=== PATIENT | female | born 1970 | race Caucasian/White ===

== ENCOUNTER 2021-04-06 21:48 | Inpatient (IN) | payer OTHER, SELFPAY ==
[2021-04-06] MEDS ORDERED: Morphine 4 MG/ML VIAL ONE (22:40)
[2021-04-06] MEDS ORDERED: Ondansetron PF 4 MG/2 ML Vial ONE (22:40)
[2021-04-06 22:47] LABS: Bilirubin Neg (Negative); Blood, Urine Negative (Negative); Clarity Clear (Clear); Glucose, Urine (Dipstick) >=1000 mg/dL (Negative); Ketone, Urine Negative (Negative); Leukocyte 25 (Negative); Nitrite Negative (Negative); Protein, Urine (Dipstick) Negative (Neg-Trace); Specific Gravity, Urine 1.015 (1.002-1.036); Urobilinogen Normal mg/dL (Less than 2)
[2021-04-06 22:56] LABS: Bacteria/HPF 1+ HPF (None Seen); RBC/HPF None Seen HPF (0-3); Squamous Epithelial 0-3 HPF (0-3)
[2021-04-06 23:23] LABS: #Eosinphils 0.1 10x3/uL (0.0-0.5); #Monocytes 0.3 10x3/uL (0.0-1.1); %Basophils 0.7 % (0.0-2.0); %Monocytes 7.6 % (0.0-10.0); Hemoglobin 12.1 g/dL (12.0-15.5); Mean Corpuscular HGB CONC 35.2 g/dL (32.0-36.0); Mean Corpuscular Hemoglobin 32.5 pg (27.0-33.0); Mean Corpuscular Volume 92.5 fl (81.6-98.3); Mean Platelet Volume 10.5 fl (7.4-10.4); Platelet Count 171 10x3/uL (150-450); RBC Distribution Width 11.9 % (11.5-14.5); Red Blood Cell (RBC) Count 3.72 10x6/uL (3.90-5.03); White Blood Cell (WBC) Count 4.1 10x3/uL (3.5-10.5)
[2021-04-06 23:24] LABS: #Neutrophils 2.4 10x3/uL (1.5-8.4); %Neutrophils 59.7 % (40.0-75.0)
[2021-04-06 23:37] LABS: ALT (SGPT) 18 U/L (8-55); AST (SGOT) 12 U/L (5-34); Albumin 3.5 g/dL (3.5-5.0); Alkaline Phosphatase 82 U/L (40-110); Anion Gap 15 mmol/L (10-20); BUN (Urea Nitrogen) 13 mg/dL (9.8-20.1); Bilirubin, Total 0.5 mg/dL (0.2-1.2); Calc. Creatinine Clearance 0 mL/min (70-130); Calcium 8.8 mg/dL (7.8-10.44); Carbon Dioxide 26 mmol/L (22-29); Chloride 101 mmol/L (98-107); Globulin 2.6 g/dL (2.4-3.5); Glucose 541 mg/dL (70-105); Lipase 30 U/L (8-78); Potassium 3.9 mmol/L (3.5-5.1); Protein, Total 6.1 g/dL (6.0-8.3); Sodium 138 mmol/L (136-145)
[2021-04-07 00:20] LABS: Actual Bicarbonate (HCO3v) 26 mEq/L (22-28); Calcium, Ionized (venous) 1.15 mmol/L (1.16-1.32); Chloride (VBG) 101 mmol/L (98-106); Hemoglobin (Hb) 13.5 g/dL (11.7-16.0); Potassium (VBG) 3.75 mmol/L (3.70-5.30); Puncture Site Other Site; RapidComm Collect By LAB; Sodium 137.1 mmol/L (133-146); pH (venous) 7.36 (7.32-7.43)
[2021-04-07] MEDS ORDERED: HYDROmorphone 0.5 MG/0.5 ML SYRINGE ONE (00:58)
[2021-04-07] MEDS ORDERED: metroNIDAZOLE 500 MG/100 ML BAG ONE (02:45)
[2021-04-07] MEDS ORDERED: Dextrose 5% in Water 1,000 ML IV PRN (04:52)
[2021-04-07] MEDS ORDERED: Dextrose 50% Abboject 50 ML SYRINGE SLOW IVP PRN (04:52)
[2021-04-07] MEDS ORDERED: Morphine 2 MG/ML VIAL SLOW IVP PRN (05:04)
[2021-04-07 05:37] LABS: #Eosinphils 0.1 10x3/uL (0.0-0.5); #Monocytes 0.3 10x3/uL (0.0-1.1); #Neutrophils 2.6 10x3/uL (1.5-8.4); %Basophils 0.7 % (0.0-2.0); %Eosinophils 1.5 % (0.0-6.0); %Lymphocytes 26.5 % (18.0-47.0); %Monocytes 6.9 % (0.0-10.0); %Neutrophils 64.2 % (40.0-75.0); Hemoglobin 12.7 g/dL (12.0-15.5); Mean Corpuscular HGB CONC 34.5 g/dL (32.0-36.0); Mean Corpuscular Hemoglobin 32.4 pg (27.0-33.0); Mean Corpuscular Volume 93.9 fl (81.6-98.3); Mean Platelet Volume 10.5 fl (7.4-10.4); Platelet Count 153 10x3/uL (150-450); RBC Distribution Width 12.1 % (11.5-14.5); Red Blood Cell (RBC) Count 3.92 10x6/uL (3.90-5.03)
[2021-04-07 05:48] LABS: Anion Gap 16 mmol/L (10-20); BUN (Urea Nitrogen) 10 mg/dL (9.8-20.1); Calc. Creatinine Clearance 0 mL/min (70-130); Calcium 8.5 mg/dL (7.8-10.44); Carbon Dioxide 21 mmol/L (22-29); Chloride 101 mmol/L (98-107); Glucose 460 mg/dL (70-105); Potassium 3.9 mmol/L (3.5-5.1); Sodium 134 mmol/L (136-145)
[2021-04-07] MEDS: HumaLOG 300 UNITS/3 ML VIAL SC PRN (07:06)
[2021-04-07] MEDS ORDERED: Magnesium 2 GM/50 ML 2 GM in Premix Bag 1 BAG IVPB SCH (07:45)
[2021-04-07] MEDS ORDERED: HYDROmorphone 0.5 MG/0.5 ML SYRINGE SLOW IVP SCH ×3 (09:00→21:00)
[2021-04-07 09:02] VITALS: BMI 20.1
[2021-04-07] MEDS: Lantus 1000 UNITS/10 ML VIAL SC SCH (09:19)
[2021-04-07] MEDS: Enoxaparin Sodium 40 MG/0.4 ML SYRINGE SC SCH (09:20)
[2021-04-07] MEDS ORDERED: metroNIDAZOLE 500 MG in Premix Bag 1 BAG IVPB SCH (11:00)
[2021-04-07 11:32] LABS: SARS-CoV-2 NAA Rapid Test Not Detected (NotDetected)
[2021-04-07] MEDS: Potassium Chloride 20 MEQ in Lactated Ringer's 1,000 ML IV SCH ×2 (13:47)
[2021-04-07] MEDS: metroNIDAZOLE 500 MG in Premix Bag 1 BAG IVPB SCH ×2 (13:48→21:37)
[2021-04-07] MEDS: Morphine 4 MG/ML VIAL SLOW IVP PRN (13:48)
[2021-04-07] MEDS ORDERED: Ketorolac Tromethamine 30 MG/ML VIAL IVP PRN (15:30)
[2021-04-07 16:46] LABS: Amphetamine Not Detected (NotDetected); Barbiturates Screen Not Detected (NotDetected); Benzodiazepine Screen Not Detected (NotDetected); Cocaine Metabolite Screen Not Detected (NotDetected); Methadone Not Detected (NotDetected); Methamphetamine Not Detected (NotDetected); Opiate Screen Detected (NotDetected); Oxycodone Screen Not Detected (NotDetected); Phencyclidine (PCP) Not Detected (NotDetected); THC/Cannabinoid Screen Detected (NotDetected); Tricyclic Screen Not Detected (NotDetected)
[2021-04-08] MEDS: Promethazine HCl 12.5 MG in Sodium Chloride 0.9% 50 ML IVPB PRN (01:44)
[2021-04-08] MEDS: Morphine 4 MG/ML VIAL SLOW IVP PRN ×5 (01:44→21:22)
[2021-04-08] MEDS ORDERED: Lactated Ringer's 1,000 ML ONE (01:52)
[2021-04-08] MEDS: Potassium Chloride 20 MEQ in Lactated Ringer's 1,000 ML IV SCH ×3 (02:00→16:58)
[2021-04-08] MEDS ORDERED: HYDROmorphone 0.5 MG/0.5 ML SYRINGE SLOW IVP SCH (04:15)
[2021-04-08] MEDS: Ondansetron PF 4 MG/2 ML Vial IVP PRN ×3 (04:41→21:22)
[2021-04-08] MEDS: metroNIDAZOLE 500 MG in Premix Bag 1 BAG IVPB SCH ×3 (07:42→21:21)
[2021-04-08] MEDS: Enoxaparin Sodium 40 MG/0.4 ML SYRINGE SC SCH (09:10)
[2021-04-08] MEDS: Lantus 1000 UNITS/10 ML VIAL SC SCH (09:11)
[2021-04-08] MEDS: Vancomycin HCl 25 MG/ML Oral PO SCH ×2 (16:58→21:37)
[2021-04-08] MEDS: HumaLOG 300 UNITS/3 ML VIAL SC PRN (21:49)
[2021-04-09] MEDS: Potassium Chloride 20 MEQ in Lactated Ringer's 1,000 ML IV SCH ×3 (00:03→21:02)
[2021-04-09] MEDS: Morphine 4 MG/ML VIAL SLOW IVP PRN ×3 (01:46→10:07)
[2021-04-09] MEDS: Vancomycin HCl 25 MG/ML Oral PO SCH ×4 (03:19→20:46)
[2021-04-09 04:57] LABS: #Eosinphils 0.1 10x3/uL (0.0-0.5); #Monocytes 0.3 10x3/uL (0.0-1.1); #Neutrophils 1.8 10x3/uL (1.5-8.4); %Basophils 1.2 % (0.0-2.0); %Lymphocytes 34.1 % (18.0-47.0); %Monocytes 8.5 % (0.0-10.0); %Neutrophils 52.9 % (40.0-75.0); Hemoglobin 13.1 g/dL (12.0-15.5); Mean Corpuscular Hemoglobin 32.3 pg (27.0-33.0); Mean Corpuscular Volume 92.1 fl (81.6-98.3); Mean Platelet Volume 10.4 fl (7.4-10.4); Platelet Count 173 10x3/uL (150-450); RBC Distribution Width 11.8 % (11.5-14.5); Red Blood Cell (RBC) Count 4.06 10x6/uL (3.90-5.03); White Blood Cell (WBC) Count 3.3 10x3/uL (3.5-10.5)
[2021-04-09 05:04] LABS: Anion Gap 11 mmol/L (10-20); BUN (Urea Nitrogen) 4 mg/dL (9.8-20.1); Calc. Creatinine Clearance 95 mL/min (70-130); Calcium 8.7 mg/dL (7.8-10.44); Carbon Dioxide 28 mmol/L (22-29); Chloride 102 mmol/L (98-107); Glucose 168 mg/dL (70-105); Potassium 3.9 mmol/L (3.5-5.1); Sodium 137 mmol/L (136-145)
[2021-04-09] MEDS: HumaLOG 300 UNITS/3 ML VIAL SC PRN ×2 (06:03→20:48)
[2021-04-09] MEDS: metroNIDAZOLE 500 MG in Premix Bag 1 BAG IVPB SCH ×3 (06:04→22:55)
[2021-04-09] MEDS: Enoxaparin Sodium 40 MG/0.4 ML SYRINGE SC SCH (10:06)
[2021-04-09] MEDS: Lantus 1000 UNITS/10 ML VIAL SC SCH (10:07)
[2021-04-09] MEDS: HYDROcodone/Acetaminophen 5/325 mg Tablet PO PRN ×2 (12:24→20:44)
[2021-04-09] MEDS: Ondansetron PF 4 MG/2 ML Vial IVP PRN (12:24)
[2021-04-09] MEDS: Morphine 4 MG/ML VIAL SLOW IVP SCH ×2 (15:45→23:21)
[2021-04-10] MEDS: HYDROcodone/Acetaminophen 5/325 mg Tablet PO PRN ×4 (03:18→20:27)
[2021-04-10] MEDS: Vancomycin HCl 25 MG/ML Oral PO SCH ×4 (03:19→20:27)
[2021-04-10] MEDS: metroNIDAZOLE 500 MG in Premix Bag 1 BAG IVPB SCH ×3 (05:01→20:40)
[2021-04-10] MEDS: Potassium Chloride 20 MEQ in Lactated Ringer's 1,000 ML IV SCH ×3 (05:01→16:20)
[2021-04-10 05:35] LABS: Hemoglobin 13.3 g/dL (12.0-15.5); Mean Corpuscular HGB CONC 35.7 g/dL (32.0-36.0); Mean Corpuscular Hemoglobin 32.3 pg (27.0-33.0); Mean Corpuscular Volume 90.5 fl (81.6-98.3); Red Blood Cell (RBC) Count 4.12 10x6/uL (3.90-5.03); White Blood Cell (WBC) Count 3.3 10x3/uL (3.5-10.5)
[2021-04-10 05:41] LABS: MDiff Complete? YES
[2021-04-10 05:52] LABS: Anion Gap 12 mmol/L (10-20); BUN (Urea Nitrogen) 8 mg/dL (9.8-20.1); Calc. Creatinine Clearance 82 mL/min (70-130); Calcium 9.1 mg/dL (7.8-10.44); Carbon Dioxide 25 mmol/L (22-29); Chloride 101 mmol/L (98-107); Glucose 338 mg/dL (70-105); Potassium 4.8 mmol/L (3.5-5.1); Sodium 133 mmol/L (136-145)
[2021-04-10 05:56] LABS: Eosinophils 3 % (0-10); Lymphocytes 34 % (21-51); Monocytes 9 % (0-10); Neutrophil 46 % (42-75); Reactive Lymphocytes 7 % (0-10)
[2021-04-10 05:57] LABS: Platelet Clumps SLIGHT; Platelet Morphology Comment Appears Adequate
[2021-04-10 06:29] LABS: Large Platelets SLIGHT; Mean Platelet Volume 10.4 fl (7.4-10.4); Platelet Count 168 10x3/uL (150-450)
[2021-04-10] MEDS: Morphine 4 MG/ML VIAL SLOW IVP SCH ×3 (07:39→22:38)
[2021-04-10] MEDS ORDERED: Gabapentin 300 MG CAP PO SCH (10:45)
[2021-04-10] MEDS: Enoxaparin Sodium 40 MG/0.4 ML SYRINGE SC SCH (10:51)
[2021-04-10] MEDS: Ondansetron PF 4 MG/2 ML Vial IVP PRN (10:52)
[2021-04-10] MEDS ORDERED: Lidocaine 5% Patch TD SCH (11:45)
[2021-04-10] MEDS: HumaLOG 300 UNITS/3 ML VIAL SC PRN (11:59)
[2021-04-10] MEDS: Lantus 1000 UNITS/10 ML VIAL SC SCH (12:00)
[2021-04-10] MEDS: Gabapentin 300 MG CAP PO SCH ×2 (14:26→20:51)
[2021-04-10] MEDS: Promethazine HCl 12.5 MG in Sodium Chloride 0.9% 50 ML IVPB PRN (20:27)
[2021-04-10] MEDS ORDERED: Transdermal Patch Removal TOP SCH (21:00)
[2021-04-10] MEDS: Transdermal Patch Removal TOP SCH (22:43)
[2021-04-11] MEDS: Potassium Chloride 20 MEQ in Lactated Ringer's 1,000 ML IV SCH ×3 (00:50→17:48)
[2021-04-11] MEDS ORDERED: Promethazine HCl 25 MG/ML VIAL ONE (03:16)
[2021-04-11] MEDS: Vancomycin HCl 25 MG/ML Oral PO SCH ×4 (03:35→21:02)
[2021-04-11] MEDS: HYDROcodone/Acetaminophen 5/325 mg Tablet PO PRN ×2 (03:35→09:30)
[2021-04-11] MEDS: Promethazine HCl 12.5 MG in Sodium Chloride 0.9% 50 ML IVPB PRN (03:38)
[2021-04-11 04:59] LABS: #Eosinphils 0.2 10x3/uL (0.0-0.5); #Monocytes 0.3 10x3/uL (0.0-1.1); #Neutrophils 1.5 10x3/uL (1.5-8.4); %Basophils 1.1 % (0.0-2.0); %Eosinophils 4.2 % (0.0-6.0); %Lymphocytes 43.1 % (18.0-47.0); %Monocytes 8.4 % (0.0-10.0); %Neutrophils 42.9 % (40.0-75.0); Hemoglobin 13.4 g/dL (12.0-15.5); Mean Corpuscular HGB CONC 35.2 g/dL (32.0-36.0); Mean Corpuscular Hemoglobin 32.1 pg (27.0-33.0); Mean Corpuscular Volume 91.4 fl (81.6-98.3); Mean Platelet Volume 10.6 fl (7.4-10.4); Platelet Count 178 10x3/uL (150-450); Red Blood Cell (RBC) Count 4.17 10x6/uL (3.90-5.03); White Blood Cell (WBC) Count 3.6 10x3/uL (3.5-10.5)
[2021-04-11 05:17] LABS: Anion Gap 11 mmol/L (10-20); BUN (Urea Nitrogen) 11 mg/dL (9.8-20.1); Calc. Creatinine Clearance 79 mL/min (70-130); Calcium 9.2 mg/dL (7.8-10.44); Carbon Dioxide 29 mmol/L (22-29); Chloride 101 mmol/L (98-107); Glucose 256 mg/dL (70-105); Potassium 4.1 mmol/L (3.5-5.1); Sodium 137 mmol/L (136-145)
[2021-04-11] MEDS: metroNIDAZOLE 500 MG in Premix Bag 1 BAG IVPB SCH ×3 (06:34→22:05)
[2021-04-11] MEDS: Morphine 4 MG/ML VIAL SLOW IVP SCH ×3 (06:37→22:06)
[2021-04-11] MEDS: Gabapentin 300 MG CAP PO SCH ×3 (08:19→21:03)
[2021-04-11] MEDS: Lantus 1000 UNITS/10 ML VIAL SC SCH (08:20)
[2021-04-11] MEDS: Lidocaine 5% Patch TD SCH (08:21)
[2021-04-11] MEDS: Enoxaparin Sodium 40 MG/0.4 ML SYRINGE SC SCH (10:12)
[2021-04-11] MEDS ORDERED: oxyCODONE/Acetaminophen 5 mg/325 mg Tablet PO PRN ×2 (12:18→12:19)
[2021-04-11] MEDS ORDERED: Methocarbamol 500 MG TAB PO PRN (12:20)
[2021-04-11] MEDS: HumaLOG 300 UNITS/3 ML VIAL SC PRN ×3 (12:21→22:06)
[2021-04-11] MEDS ORDERED: oxyCODONE 5 MG TAB PO PRN (15:44)
[2021-04-11] MEDS ORDERED: Acetaminophen 325 MG TAB PO PRN ×2 (15:45→15:46)
[2021-04-11] MEDS: Lactinex Tablet PO SCH ×2 (15:50→21:02)
[2021-04-11] MEDS: oxyCODONE 5 MG TAB PO PRN (17:47)
[2021-04-11] MEDS: Ondansetron PF 4 MG/2 ML Vial IVP PRN (17:49)
[2021-04-12] MEDS: Ondansetron PF 4 MG/2 ML Vial IVP PRN ×3 (01:03→21:14)
[2021-04-12] MEDS: oxyCODONE 5 MG TAB PO PRN ×3 (01:03→21:16)
[2021-04-12] MEDS: Potassium Chloride 20 MEQ in Lactated Ringer's 1,000 ML IV SCH ×2 (01:40→08:58)
[2021-04-12] MEDS: metroNIDAZOLE 500 MG in Premix Bag 1 BAG IVPB SCH ×3 (05:37→22:57)
[2021-04-12] MEDS: Vancomycin HCl 25 MG/ML Oral PO SCH ×4 (05:38→21:15)
[2021-04-12] MEDS: Morphine 4 MG/ML VIAL SLOW IVP SCH ×3 (05:38→22:57)
[2021-04-12] MEDS: Transdermal Patch Removal TOP SCH (06:14)
[2021-04-12] MEDS: Lantus 1000 UNITS/10 ML VIAL SC SCH (08:57)
[2021-04-12] MEDS: Gabapentin 300 MG CAP PO SCH ×3 (08:59→21:15)
[2021-04-12] MEDS: Enoxaparin Sodium 40 MG/0.4 ML SYRINGE SC SCH (08:59)
[2021-04-12] MEDS: Lactinex Tablet PO SCH ×3 (08:59→21:14)
[2021-04-12] MEDS: Lidocaine 5% Patch TD SCH (08:59)
[2021-04-12] MEDS: HumaLOG 300 UNITS/3 ML VIAL SC PRN (18:44)
[2021-04-13] MEDS: Potassium Chloride 20 MEQ in Lactated Ringer's 1,000 ML IV SCH ×3 (01:00→11:11)
[2021-04-13] MEDS: Transdermal Patch Removal TOP SCH (03:17)
[2021-04-13] MEDS: Ondansetron PF 4 MG/2 ML Vial IVP PRN ×2 (03:53→16:41)
[2021-04-13] MEDS: oxyCODONE 5 MG TAB PO PRN ×3 (03:53→16:41)
[2021-04-13] MEDS: Vancomycin HCl 25 MG/ML Oral PO SCH ×3 (03:53→16:41)
[2021-04-13] MEDS: metroNIDAZOLE 500 MG in Premix Bag 1 BAG IVPB SCH ×2 (06:29→15:13)
[2021-04-13] MEDS: Morphine 4 MG/ML VIAL SLOW IVP SCH ×2 (06:29→15:48)
[2021-04-13] MEDS: HumaLOG 300 UNITS/3 ML VIAL SC PRN ×2 (06:53→13:00)
[2021-04-13] MEDS: Lantus 1000 UNITS/10 ML VIAL SC SCH (10:07)
[2021-04-13] MEDS: Gabapentin 300 MG CAP PO SCH ×2 (10:07→15:13)
[2021-04-13] MEDS: Enoxaparin Sodium 40 MG/0.4 ML SYRINGE SC SCH (10:07)
[2021-04-13] MEDS: Lactinex Tablet PO SCH ×2 (10:07→15:13)
[2021-04-13] MEDS: Lidocaine 5% Patch TD SCH (10:08)
[2021-04-13 12:57] VITALS: BP 131/90; TEMP 98.2
== END 2021-04-13 18:04 | disposition home or self-care (01) | DRG 372 ==
LOC: CSHERS 21:48 → CSHTELE 04-07 04:37 → UNDOADMOB 04-07 04:58 → OBSVTOIN 04-07 04:59 → INTOOBSV 04-07 04:59
PROVIDERS: ADMIT Family Medicine; ATTEND Hospitalist
DX: A04.72 Enterocolitis due to Clostridium difficile, not specified as recurrent (principal); F11.20 Opioid dependence, uncomplicated; Z20.822 Contact with and (suspected) exposure to COVID-19; Z88.1 Allergy status to other antibiotic agents; Z88.5 Allergy status to narcotic agent; Z79.4 Long term (current) use of insulin; Z79.899 Other long term (current) drug therapy; Z90.49 Acquired absence of other specified parts of digestive tract; Z98.51 Tubal ligation status; F17.210 Nicotine dependence, cigarettes, uncomplicated; Z86.018 Personal history of other benign neoplasm; E11.65 Type 2 diabetes mellitus with hyperglycemia; E86.0 Dehydration; M54.9 Dorsalgia, unspecified; F12.20 Cannabis dependence, uncomplicated
CPT/HCPCS: 36415; 36416; 74177; 80048; 80053; 80306; 81003; 81015; 82010; 82274; 82805; 83630; 83690; 83735; 84484; 85025; 86403; 87045; 87046; 87081; 87086; 87177; 87324; 87427; 87449; 87493; 93005; 96365; 96375; G0378; J1170; J1650; J1815; J1956; J2270; J2405; J2550; J3475; J3480; J7120; U0002

== ENCOUNTER 2021-10-15 18:53 | Inpatient (IN) | payer OTHER, SELFPAY ==
[2021-10-15 19:42] LABS: Anion Gap 16 mmol/L (10-20); BUN (Urea Nitrogen) 7 mg/dL (9.8-20.1); Calc. Creatinine Clearance 0 mL/min (70-130); Calcium 8.6 mg/dL (7.8-10.44); Carbon Dioxide 24 mmol/L (22-29); Chloride 102 mmol/L (98-107); Glucose 188 mg/dL (70-105); Potassium 3.2 mmol/L (3.5-5.1); Sodium 139 mmol/L (136-145)
[2021-10-15] MEDS ORDERED: Haloperidol Lactate 5 MG/ML VIAL ONE (20:25)
[2021-10-15] MEDS ORDERED: Dextrose 5% in Water 1,000 ML IV PRN (22:28)
[2021-10-15] MEDS ORDERED: Dextrose 50% Abboject 50 ML SYRINGE SLOW IVP PRN (22:28)
[2021-10-15] MEDS ORDERED: Acetaminophen 325 MG TAB PO PRN (22:28)
[2021-10-15 22:31] VITALS: BMI 21.7
[2021-10-15] MEDS ORDERED: Lorazepam 2 MG/ML VIAL SLOW IVP SCH (22:45)
[2021-10-15] MEDS ORDERED: Metoclopramide HCl 10 MG/2 ML VIAL IVP SCH (22:45)
[2021-10-15] MEDS ORDERED: diphenhydrAMINE 50 MG/ML VIAL IVP SCH (22:45)
[2021-10-15] MEDS ORDERED: Morphine 4 MG/ML VIAL SLOW IVP SCH (22:45)
[2021-10-15] MEDS ORDERED: Potassium Chloride 20 MEQ/100 ML PREMIX BAG ONE (22:50)
[2021-10-15] MEDS ORDERED: Prochlorperazine Edisylate 5 MG, Admixture Fee 1 EACH in Sodium Chloride 0.9% 50 ML IVPB SCH (23:00)
[2021-10-15] MEDS ORDERED: Magnesium 2 GM/50 ML 2 GM in Premix Bag 1 BAG IVPB SCH (23:00)
[2021-10-15] MEDS ORDERED: Potassium Chloride 20 MEQ in Premix Bag 1 BAG IVPB SCH (23:00)
[2021-10-15] MEDS: Famotidine/PF 20 mg/2ml Vial SLOW IVP SCH (23:04)
[2021-10-15] MEDS: Lactated Ringer's 1,000 ML IV SCH (23:14)
[2021-10-15] MEDS ORDERED: FLU VACC QS2021-22(6MOS UP)/PF 60 MCG/0.5 ML SYRINGE IM ONE (23:45)
[2021-10-16] MEDS: Ondansetron PF 4 MG/2 ML Vial IVP PRN ×2 (00:58→09:51)
[2021-10-16] MEDS ORDERED: Morphine 4 MG/ML VIAL SLOW IVP SCH (01:45)
[2021-10-16] MEDS: Metoclopramide HCl 10 MG/2 ML VIAL IVP SCH ×3 (05:21→21:56)
[2021-10-16] MEDS: HumaLOG 300 UNITS/3 ML VIAL SC PRN ×2 (05:30→22:01)
[2021-10-16] MEDS ORDERED: Labetalol HCl 100 MG/20 ML VIAL SLOW IVP PRN (05:52)
[2021-10-16] MEDS ORDERED: Lorazepam 2 MG/ML VIAL SLOW IVP SCH (06:00)
[2021-10-16 06:02] LABS: Amphetamine Not Detected (NotDetected); Barbiturates Screen Not Detected (NotDetected); Benzodiazepine Screen Not Detected (NotDetected); Cocaine Metabolite Screen Not Detected (NotDetected); Methadone Not Detected (NotDetected); Methamphetamine Not Detected (NotDetected); Opiate Screen Detected (NotDetected); Oxycodone Screen Not Detected (NotDetected); Phencyclidine (PCP) Not Detected (NotDetected); THC/Cannabinoid Screen Detected (NotDetected); Tricyclic Screen Not Detected (NotDetected)
[2021-10-16 07:21] LABS: ALT (SGPT) 13 U/L (8-55); AST (SGOT) 14 U/L (5-34); Albumin 4.1 g/dL (3.5-5.0); Alkaline Phosphatase 86 U/L (40-110); Anion Gap 23 mmol/L (10-20); BUN (Urea Nitrogen) 7 mg/dL (9.8-20.1); Bilirubin, Total 1.1 mg/dL (0.2-1.2); Calc. Creatinine Clearance 86 mL/min (70-130); Calcium 8.6 mg/dL (7.8-10.44); Carbon Dioxide 16 mmol/L (22-29); Chloride 101 mmol/L (98-107); Globulin 2.9 g/dL (2.4-3.5); Glucose 362 mg/dL (70-105); Potassium 3.7 mmol/L (3.5-5.1); Sodium 136 mmol/L (136-145)
[2021-10-16 07:53] LABS: #Monocytes 0.3 10x3/uL (0.0-1.1); #Neutrophils 4.2 10x3/uL (1.5-8.4); %Basophils 0.8 % (0.0-2.0); %Lymphocytes 14.5 % (18.0-47.0); %Monocytes 5.1 % (0.0-10.0); %Neutrophils 79.2 % (40.0-75.0); Mean Corpuscular Hemoglobin 30.6 pg (27.0-33.0); Mean Platelet Volume 10.6 fl (7.4-10.4); Platelet Count 222 10x3/uL (150-450); RBC Distribution Width 12.7 % (11.5-14.5); White Blood Cell (WBC) Count 5.3 10x3/uL (3.5-10.5)
[2021-10-16] MEDS ORDERED: Lantus 1000 UNITS/10 ML VIAL SC SCH ×4 (09:00→21:00)
[2021-10-16] MEDS: Enoxaparin Sodium 40 MG/0.4 ML SYRINGE SC SCH (09:50)
[2021-10-16] MEDS: Lactated Ringer's 1,000 ML IV SCH (09:50)
[2021-10-16] MEDS: Famotidine/PF 20 mg/2ml Vial SLOW IVP SCH ×2 (09:51→21:56)
[2021-10-16 10:40] LABS: Anion Gap 15 mmol/L (10-20); BUN (Urea Nitrogen) 7 mg/dL (9.8-20.1); Calc. Creatinine Clearance 96 mL/min (70-130); Calcium 8.6 mg/dL (7.8-10.44); Carbon Dioxide 22 mmol/L (22-29); Chloride 103 mmol/L (98-107); Glucose 173 mg/dL (70-105); Potassium 3.9 mmol/L (3.5-5.1); Sodium 136 mmol/L (136-145)
[2021-10-16] MEDS: Sodium Chloride 0.45% 1,000 ML IV SCH ×5 (13:45→22:23)
[2021-10-16] MEDS: Acetaminophen/Codeine 30-300mg Tablet PO PRN ×2 (13:45→22:10)
[2021-10-17] MEDS: Sodium Chloride 0.45% 1,000 ML IV SCH ×3 (02:32→11:19)
[2021-10-17] MEDS: Acetaminophen/Codeine 30-300mg Tablet PO PRN ×2 (04:41→09:03)
[2021-10-17] MEDS: Metoclopramide HCl 10 MG/2 ML VIAL IVP SCH (06:27)
[2021-10-17 07:47] LABS: Anion Gap 15 mmol/L (10-20); BUN (Urea Nitrogen) Less than 4 mg/dL (9.8-20.1); Calc. Creatinine Clearance 98 mL/min (70-130); Calcium 8.2 mg/dL (7.8-10.44); Carbon Dioxide 21 mmol/L (22-29); Chloride 103 mmol/L (98-107); Glucose 186 mg/dL (70-105); Potassium 3.3 mmol/L (3.5-5.1); Sodium 136 mmol/L (136-145)
[2021-10-17 08:59] LABS: #Monocytes 0.3 10x3/uL (0.0-1.1); #Neutrophils 1.9 10x3/uL (1.5-8.4); %Basophils 1.1 % (0.0-2.0); %Eosinophils 0.9 % (0.0-6.0); %Lymphocytes 37.2 % (18.0-47.0); %Monocytes 7.7 % (0.0-10.0); %Neutrophils 52.8 % (40.0-75.0); Hemoglobin 9.9 g/dL (12.0-15.5); Mean Corpuscular HGB CONC 35.1 g/dL (32.0-36.0); Mean Corpuscular Volume 88.4 fl (81.6-98.3); Mean Platelet Volume 10.2 fl (7.4-10.4); Platelet Count 227 10x3/uL (150-450); RBC Distribution Width 12.3 % (11.5-14.5); Red Blood Cell (RBC) Count 3.19 10x6/uL (3.90-5.03); White Blood Cell (WBC) Count 3.5 10x3/uL (3.5-10.5)
[2021-10-17] MEDS: Famotidine/PF 20 mg/2ml Vial SLOW IVP SCH (09:03)
[2021-10-17] MEDS: Enoxaparin Sodium 40 MG/0.4 ML SYRINGE SC SCH (09:04)
[2021-10-17] MEDS ORDERED: Potassium Chloride 20 MEQ TAB PO SCH (09:15)
[2021-10-17] MEDS ORDERED: HYDROcodone/Acetaminophen 5/325 mg Tablet PO SCH (11:30)
[2021-10-17 13:15] VITALS: BP 129/90; TEMP 98.5
== END 2021-10-17 14:40 | disposition home or self-care (01) | DRG 638 ==
LOC: CSHERS 18:53 → CSHTELE 18:54 → OBSVTOIN 22:28
PROVIDERS: ADMIT Student in an Organized Health Care Education/Training Program; ATTEND Internal Medicine
DX: E11.10 Type 2 diabetes mellitus with ketoacidosis without coma (principal); E87.3 Alkalosis; G89.29 Other chronic pain; F11.10 Opioid abuse, uncomplicated; F12.10 Cannabis abuse, uncomplicated; E87.6 Hypokalemia; Z20.822 Contact with and (suspected) exposure to COVID-19; M54.9 Dorsalgia, unspecified; E83.42 Hypomagnesemia; Z79.4 Long term (current) use of insulin; Z79.899 Other long term (current) drug therapy; Z88.1 Allergy status to other antibiotic agents; Z88.8 Allergy status to other drugs, medicaments and biological substances; Z79.891 Long term (current) use of opiate analgesic; Z90.49 Acquired absence of other specified parts of digestive tract; Z98.51 Tubal ligation status; Z87.891 Personal history of nicotine dependence; Z86.018 Personal history of other benign neoplasm
CPT/HCPCS: 36415; 36416; 74176; 80048; 80053; 80306; 82010; 83036; 83735; 85025; 96374; J0780; J1200; J1630; J1650; J1815; J2060; J2270; J2405; J2765; J3475; J3480; J7120; S0028

== ENCOUNTER 2021-12-06 04:18 | Emergency (ER) | payer OTHER ==
[2021-12-06] MEDS ORDERED: Glycopyrrolate 0.2 MG/ML 5 ML SYRINGE SLOW IVP SCH (05:00)
[2021-12-06 05:19] LABS: #Monocytes 0.2 10x3/uL (0.0-1.1); #Neutrophils 1.9 10x3/uL (1.5-8.4); %Basophils 1.3 % (0.0-2.0); %Eosinophils 0.6 % (0.0-6.0); %Lymphocytes 30.3 % (18.0-47.0); %Monocytes 7.1 % (0.0-10.0); %Neutrophils 60.4 % (40.0-75.0); Hemoglobin 10.3 g/dL (12.0-15.5); Mean Corpuscular HGB CONC 33.1 g/dL (32.0-36.0); Mean Corpuscular Hemoglobin 30.2 pg (27.0-33.0); Mean Corpuscular Volume 91.2 fl (81.6-98.3); Mean Platelet Volume 9.8 fl (7.4-10.4); Platelet Count 246 10x3/uL (150-450); Red Blood Cell (RBC) Count 3.41 10x6/uL (3.90-5.03); White Blood Cell (WBC) Count 3.1 10x3/uL (3.5-10.5)
[2021-12-06 05:23] LABS: ALT (SGPT) 17 U/L (8-55); AST (SGOT) 16 U/L (5-34); Albumin 3.7 g/dL (3.5-5.0); Alkaline Phosphatase 70 U/L (40-110); Anion Gap 15 mmol/L (10-20); BUN (Urea Nitrogen) 8 mg/dL (9.8-20.1); Bilirubin, Total 0.6 mg/dL (0.2-1.2); Calc. Creatinine Clearance 0 mL/min (70-130); Calcium 8.3 mg/dL (7.8-10.44); Carbon Dioxide 25 mmol/L (22-29); Chloride 102 mmol/L (98-107); Globulin 2.6 g/dL (2.4-3.5); Glucose 236 mg/dL (70-105); Lipase 18 U/L (8-78); Potassium 3.2 mmol/L (3.5-5.1); Protein, Total 6.3 g/dL (6.0-8.3); Sodium 139 mmol/L (136-145)
[2021-12-06 05:24] LABS: Bilirubin Neg (Negative); Blood, Urine 10 (Negative); Clarity Clear (Clear); Glucose, Urine (Dipstick) >=1000 mg/dL (Negative); Ketone, Urine 50 mg/dL (Negative); Leukocyte Negative (Negative); Nitrite Negative (Negative); Protein, Urine (Dipstick) Negative (Neg-Trace); Specific Gravity, Urine 1.015 (1.002-1.036); Urobilinogen Normal mg/dL (Less than 2); pH, Urine 6.5 (5.0-9.0)
[2021-12-06] MEDS ORDERED: Haloperidol Lactate 5 MG/ML VIAL ONE (05:45)
[2021-12-06 06:08] LABS: RBC/HPF 0-3 HPF (0-3); Squamous Epithelial 0-3 HPF (0-3); WBC/HPF 0-3 HPF (0-3)
[2021-12-06 06:09] LABS: Bacteria/HPF Rare-Few HPF (None Seen)
== END 2021-12-06 07:59 | disposition left against medical advice (07) ==
LOC: CSHERS 04:18
DX: R10.31 Right lower quadrant pain (principal); R10.32 Left lower quadrant pain; R11.2 Nausea with vomiting, unspecified; R19.7 Diarrhea, unspecified; G89.29 Other chronic pain; E11.9 Type 2 diabetes mellitus without complications; Z87.19 Personal history of other diseases of the digestive system; F17.290 Nicotine dependence, other tobacco product, uncomplicated; Z86.711 Personal history of pulmonary embolism; Z79.4 Long term (current) use of insulin
CPT/HCPCS: 74177; 80053; 81003; 81015; 83605; 83690; 85025; 96374; 96375; J1630

== ENCOUNTER 2022-01-22 14:47 | Inpatient (IN) | payer OTHER, SELFPAY ==
[2022-01-22] MEDS ORDERED: Acetaminophen 325 MG TAB PO PRN (16:16)
[2022-01-22] MEDS ORDERED: Ondansetron ODT 4 MG TAB PO PRN (16:16)
[2022-01-22] MEDS ORDERED: Dextrose 50% Abboject 50 ML SYRINGE SLOW IVP PRN (16:19)
[2022-01-22] MEDS ORDERED: Dextrose 5% in Water 1,000 ML IV PRN (16:19)
[2022-01-22] MEDS ORDERED: HumaLOG 300 UNITS/3 ML VIAL SC PRN (16:19)
[2022-01-22] MEDS ORDERED: Electrolyte Replacement Protocol 1 EACH FS SCH (16:30)
[2022-01-22] MEDS ORDERED: Enoxaparin Sodium 40 MG/0.4 ML SYRINGE SC SCH (16:30)
[2022-01-22] MEDS: Ondansetron PF 4 MG/2 ML Vial IVP PRN ×2 (17:09→23:11)
[2022-01-22] MEDS: Sodium Chloride 0.9% 1,000 ML IV SCH ×2 (17:09→23:56)
[2022-01-22 17:12] VITALS: BMI 22.4
[2022-01-22] MEDS ORDERED: FLU VACC QS2021-22(6MOS UP)/PF 60 MCG/0.5 ML SYRINGE IM ONE (17:15)
[2022-01-22] MEDS: HumaLOG 300 UNITS/3 ML VIAL SC PRN (17:44)
[2022-01-22] MEDS: hydrALAZINE 20 MG/ML VIAL SLOW IVP PRN ×2 (17:44→23:56)
[2022-01-22] MEDS ORDERED: Morphine 4 MG/ML VIAL SLOW IVP SCH ×2 (17:45→23:15)
[2022-01-22] MEDS: Metoclopramide HCl 10 MG/2 ML VIAL IVP SCH (21:20)
[2022-01-22] MEDS: Pantoprazole 40 MG VIAL IVP SCH (21:20)
[2022-01-22] MEDS: Acetaminophen/Codeine 30-300mg Tablet PO PRN (21:21)
[2022-01-23] MEDS: Metoclopramide HCl 10 MG/2 ML VIAL IVP SCH ×3 (05:48→21:37)
[2022-01-23] MEDS: HumaLOG 300 UNITS/3 ML VIAL SC PRN ×2 (06:01→16:11)
[2022-01-23] MEDS: Acetaminophen/Codeine 30-300mg Tablet PO PRN ×2 (06:03→15:46)
[2022-01-23 06:38] LABS: #Eosinphils 0.1 10x3/uL (0.0-0.5); #Monocytes 0.3 10x3/uL (0.0-1.1); #Neutrophils 6.6 10x3/uL (1.5-8.4); %Basophils 0.3 % (0.0-2.0); %Eosinophils 0.8 % (0.0-6.0); %Lymphocytes 8.3 % (18.0-47.0); %Monocytes 3.5 % (0.0-10.0); %Neutrophils 86.1 % (40.0-75.0); Hemoglobin 11.1 g/dL (12.0-15.5); Mean Corpuscular HGB CONC 32.9 g/dL (32.0-36.0); Mean Corpuscular Hemoglobin 28.7 pg (27.0-33.0); Mean Corpuscular Volume 87.1 fl (81.6-98.3); Platelet Count 170 10x3/uL (150-450); RBC Distribution Width 13.7 % (11.5-14.5); Red Blood Cell (RBC) Count 3.87 10x6/uL (3.90-5.03); White Blood Cell (WBC) Count 7.7 10x3/uL (3.5-10.5)
[2022-01-23 06:59] LABS: BUN (Urea Nitrogen) 16 mg/dL (9.8-20.1); Calc. Creatinine Clearance 72 mL/min (70-130); Calcium 9.2 mg/dL (7.8-10.44); Chloride 101 mmol/L (98-107); Glucose 461 mg/dL (70-105); Magnesium 1.8 mg/dL (1.6-2.6); Potassium 4.3 mmol/L (3.5-5.1); Sodium 137 mmol/L (136-145)
[2022-01-23 07:09] LABS: Platelet Morphology Comment PLT clumps seen-ADEQ
[2022-01-23 07:11] LABS: Carbon Dioxide Less than 8 mmol/L (22-29)
[2022-01-23] MEDS ORDERED: NS 0.9% w/ 20 MEQ KCL 1,000 ML IV PRN ×2 (07:41)
[2022-01-23] MEDS ORDERED: D5 1/2 NS w/20 mEq KCL 1,000 ML IV PRN (07:41)
[2022-01-23] MEDS ORDERED: Dextrose 5 %-0.45 % NaCl 1,000 ML IV PRN (07:41)
[2022-01-23] MEDS ORDERED: Sodium Chloride 0.9% 1,000 ML IV PRN ×4 (07:41)
[2022-01-23] MEDS ORDERED: Electrolyte Replacement Protocol 1 EACH IVPB PRN (07:41)
[2022-01-23] MEDS ORDERED: Insulin Regular 300 UNITS/3 ML VIAL IVP SCH (07:45)
[2022-01-23] MEDS: Sodium Chloride 0.9% 1,000 ML IV SCH ×2 (07:57→09:10)
[2022-01-23] MEDS ORDERED: Magnesium 2 GM/50 ML 2 GM in Premix Bag 1 BAG IVPB SCH (08:00)
[2022-01-23] MEDS ORDERED: INSULIN REGULAR IN 0.9 % NACL 100 UNIT in Premix Bag 1 BAG IVPB SCH (08:00)
[2022-01-23] MEDS: Morphine 4 MG/ML VIAL SLOW IVP PRN ×4 (08:07→21:44)
[2022-01-23] MEDS: Pantoprazole 40 MG VIAL IVP SCH ×2 (08:13→20:59)
[2022-01-23] MEDS: Enoxaparin Sodium 40 MG/0.4 ML SYRINGE SC SCH (08:13)
[2022-01-23 09:02] LABS: Anion Gap 22 mmol/L (10-20); BUN (Urea Nitrogen) 17 mg/dL (9.8-20.1); Calc. Creatinine Clearance 75 mL/min (70-130); Calcium 9.1 mg/dL (7.8-10.44); Carbon Dioxide 13 mmol/L (22-29); Chloride 103 mmol/L (98-107); Glucose 246 mg/dL (70-105); Potassium 3.6 mmol/L (3.5-5.1); Sodium 134 mmol/L (136-145)
[2022-01-23] MEDS ORDERED: Lantus 1000 UNITS/10 ML VIAL SC SCH (10:45)
[2022-01-23] MEDS ORDERED: HumaLOG 300 UNITS/3 ML VIAL SC PRN (11:15)
[2022-01-23 11:34] LABS: Bilirubin Neg (Negative); Blood, Urine Negative (Negative); Clarity Clear (Clear); Glucose, Urine (Dipstick) >=1000 mg/dL (Negative); Ketone, Urine 150 mg/dL (Negative); Leukocyte Negative (Negative); Nitrite Negative (Negative); Protein, Urine (Dipstick) 15 mg/dl (Neg-Trace); Urobilinogen Normal mg/dL (Less than 2)
[2022-01-23] MEDS: NS 0.9% w/ 20 MEQ KCL 1,000 ML/1,000 ML BAG IV SCH ×3 (11:35→17:25)
[2022-01-23 11:36] LABS: Urine Culture Reflex No No
[2022-01-23] MEDS: Ondansetron PF 4 MG/2 ML Vial IVP PRN ×2 (11:43→17:25)
[2022-01-23 11:44] LABS: RBC/HPF 0-3 HPF (0-3); Squamous Epithelial 0-3 HPF (0-3); WBC/HPF 0-3 HPF (0-3)
[2022-01-23 11:45] LABS: Bacteria/HPF None Seen HPF (None Seen)
[2022-01-23 12:02] LABS: Anion Gap 18 mmol/L (10-20); BUN (Urea Nitrogen) 15 mg/dL (9.8-20.1); Calc. Creatinine Clearance 90 mL/min (70-130); Calcium 8.4 mg/dL (7.8-10.44); Carbon Dioxide 17 mmol/L (22-29); Chloride 105 mmol/L (98-107); Glucose 143 mg/dL (70-105); Potassium 3.6 mmol/L (3.5-5.1); Sodium 136 mmol/L (136-145)
[2022-01-23 17:48] LABS: Anion Gap 16 mmol/L (10-20); BUN (Urea Nitrogen) 11 mg/dL (9.8-20.1); Calc. Creatinine Clearance 84 mL/min (70-130); Calcium 8.6 mg/dL (7.8-10.44); Carbon Dioxide 17 mmol/L (22-29); Chloride 105 mmol/L (98-107); Glucose 201 mg/dL (70-105); Potassium 3.9 mmol/L (3.5-5.1); Sodium 134 mmol/L (136-145)
[2022-01-23] MEDS: Lantus 1000 UNITS/10 ML VIAL SC SCH (20:59)
[2022-01-24] MEDS: Ondansetron PF 4 MG/2 ML Vial IVP PRN (00:56)
[2022-01-24] MEDS: Morphine 4 MG/ML VIAL SLOW IVP PRN ×6 (01:11→21:55)
[2022-01-24 04:42] LABS: Anion Gap 16 mmol/L (10-20); BUN (Urea Nitrogen) 8 mg/dL (9.8-20.1); Calc. Creatinine Clearance 95 mL/min (70-130); Calcium 8.7 mg/dL (7.8-10.44); Carbon Dioxide 20 mmol/L (22-29); Chloride 105 mmol/L (98-107); Glucose 136 mg/dL (70-105); Magnesium 1.7 mg/dL (1.6-2.6); Potassium 3.7 mmol/L (3.5-5.1); Sodium 137 mmol/L (136-145)
[2022-01-24] MEDS: Metoclopramide HCl 10 MG/2 ML VIAL IVP SCH ×4 (05:00→21:03)
[2022-01-24] MEDS ORDERED: Magnesium 2 GM/50 ML 2 GM in Premix Bag 1 BAG IVPB SCH (05:30)
[2022-01-24 06:56] LABS: #Monocytes 0.5 10x3/uL (0.0-1.1); #Neutrophils 2.8 10x3/uL (1.5-8.4); %Basophils 0.8 % (0.0-2.0); %Eosinophils 0.2 % (0.0-6.0); %Monocytes 9.3 % (0.0-10.0); %Neutrophils 57.1 % (40.0-75.0); Hemoglobin 9.7 g/dL (12.0-15.5); Mean Corpuscular HGB CONC 33.8 g/dL (32.0-36.0); Mean Corpuscular Hemoglobin 28.5 pg (27.0-33.0); Mean Corpuscular Volume 84.4 fl (81.6-98.3); Mean Platelet Volume 10.7 fl (7.4-10.4); RBC Distribution Width 13.5 % (11.5-14.5); White Blood Cell (WBC) Count 4.9 10x3/uL (3.5-10.5)
[2022-01-24 07:08] LABS: Platelet Count 233 10x3/uL (150-450)
[2022-01-24] MEDS: NS 0.9% w/ 20 MEQ KCL 1,000 ML/1,000 ML BAG IV SCH ×2 (08:15→09:20)
[2022-01-24] MEDS: Enoxaparin Sodium 40 MG/0.4 ML SYRINGE SC SCH (08:29)
[2022-01-24] MEDS: Pantoprazole 40 MG VIAL IVP SCH ×2 (08:30→21:03)
[2022-01-24] MEDS ORDERED: Loperamide HCl 1 MG/7.5 ML UDCUP PO PRN (15:44)
[2022-01-24] MEDS ORDERED: Methocarbamol 1 GM, Admixture Fee 1 EACH in Sodium Chloride 0.9% 100 ML IVPB SCH (17:00)
[2022-01-24] MEDS: Lantus 1000 UNITS/10 ML VIAL SC SCH (21:04)
[2022-01-25] MEDS: Ondansetron PF 4 MG/2 ML Vial IVP PRN (01:20)
[2022-01-25] MEDS: Acetaminophen/Codeine 30-300mg Tablet PO PRN ×3 (01:20→12:47)
[2022-01-25] MEDS: NS 0.9% w/ 20 MEQ KCL 1,000 ML/1,000 ML BAG IV SCH (01:38)
[2022-01-25] MEDS: Morphine 4 MG/ML VIAL SLOW IVP PRN ×2 (02:58→08:55)
[2022-01-25 05:05] LABS: Anion Gap 17 mmol/L (10-20); BUN (Urea Nitrogen) 7 mg/dL (9.8-20.1); Calc. Creatinine Clearance 108 mL/min (70-130); Calcium 8.3 mg/dL (7.8-10.44); Carbon Dioxide 20 mmol/L (22-29); Chloride 105 mmol/L (98-107); Glucose 132 mg/dL (70-105); Potassium 3.7 mmol/L (3.5-5.1); Sodium 138 mmol/L (136-145)
[2022-01-25] MEDS: Metoclopramide HCl 10 MG/2 ML VIAL IVP SCH ×2 (06:32→12:41)
[2022-01-25] MEDS: Pantoprazole 40 MG VIAL IVP SCH (08:54)
[2022-01-25] MEDS: Enoxaparin Sodium 40 MG/0.4 ML SYRINGE SC SCH (08:54)
[2022-01-25] MEDS ORDERED: Metoprolol Tartrate 25 MG TAB PO SCH ×2 (09:45→21:00)
[2022-01-25] MEDS ORDERED: Cholestyramine/Aspartame 4 gm Packet PO SCH (10:00)
[2022-01-25] MEDS ORDERED: tiZANidine HCl 4 MG TAB PO SCH (10:00)
[2022-01-25] MEDS ORDERED: Morphine 4 MG/ML VIAL SLOW IVP SCH ×2 (10:00→17:00)
[2022-01-25] MEDS: HumaLOG 300 UNITS/3 ML VIAL SC PRN (12:41)
[2022-01-25 12:50] VITALS: BP 159/92; TEMP 97.1
== END 2022-01-25 17:30 | disposition home or self-care (01) | DRG 638 ==
LOC: CSHTELE 14:47 → CSHIMCU 01-23 08:58 → CSHTELE 01-24 06:18
PROVIDERS: ADMIT Family Medicine; ATTEND Family Medicine
PROC: 8E0ZXY6 Isolation (ICD-10-PCS; principal; 2022-01-22)
DX: E11.10 Type 2 diabetes mellitus with ketoacidosis without coma (principal); F11.20 Opioid dependence, uncomplicated; E87.8 Other disorders of electrolyte and fluid balance, not elsewhere classified; G89.29 Other chronic pain; M54.9 Dorsalgia, unspecified; Z76.5 Malingerer [conscious simulation]
CPT/HCPCS: 36415; 36416; 74174; 80048; 81001; 82010; 83735; 85025; 94760; C9113; J0360; J1650; J1815; J2270; J2405; J2550; J2765; J2800; J3475; J3480; J3490; J7050

== ENCOUNTER 2022-02-26 23:32 | Inpatient (IN) | payer BC, MEDICAID, OTHER, SELFPAY ==
[2022-02-27] MEDS ORDERED: Ondansetron ODT 4 MG TAB PO PRN (00:06)
[2022-02-27] MEDS ORDERED: Dextrose 50% Abboject 50 ML SYRINGE SLOW IVP PRN (00:06)
[2022-02-27] MEDS ORDERED: Dextrose 5% in Water 1,000 ML IV PRN (00:06)
[2022-02-27 00:17] VITALS: BMI 22.8
[2022-02-27] MEDS: NS 0.9% w/ 20 MEQ KCL 1,000 ML/1,000 ML BAG IV SCH ×3 (00:25→17:29)
[2022-02-27] MEDS: Morphine 4 MG/ML VIAL SLOW IVP PRN ×6 (00:50→21:52)
[2022-02-27] MEDS: Metoclopramide HCl 10 MG/2 ML VIAL IVP PRN ×4 (00:52→22:17)
[2022-02-27] MEDS ORDERED: Potassium Chloride 20 MEQ in Premix Bag 1 BAG IVPB ONE (02:30)
[2022-02-27 05:07] LABS: Anion Gap 21 mmol/L (10-20); BUN (Urea Nitrogen) 6 mg/dL (9.8-20.1); Calc. Creatinine Clearance 94 mL/min (70-130); Calcium 8.2 mg/dL (7.8-10.44); Carbon Dioxide 20 mmol/L (22-29); Chloride 99 mmol/L (98-107); Glucose 359 mg/dL (70-105); Magnesium 1.5 mg/dL (1.6-2.6); Sodium 137 mmol/L (136-145)
[2022-02-27 05:13] LABS: Potassium 2.8 mmol/L (3.5-5.1)
[2022-02-27 05:44] LABS: #Monocytes 0.4 10x3/uL (0.0-1.1); #Neutrophils 4.8 10x3/uL (1.5-8.4); %Basophils 0.7 % (0.0-2.0); %Eosinophils 0.3 % (0.0-6.0); %Lymphocytes 11.4 % (18.0-47.0); %Monocytes 6.7 % (0.0-10.0); %Neutrophils 80.6 % (40.0-75.0); Hemoglobin 10.3 g/dL (12.0-15.5); Mean Corpuscular HGB CONC 33.8 g/dL (32.0-36.0); Mean Corpuscular Hemoglobin 28.6 pg (27.0-33.0); Mean Corpuscular Volume 84.7 fl (81.6-98.3); Mean Platelet Volume 11.7 fl (7.4-10.4); RBC Distribution Width 14.2 % (11.5-14.5)
[2022-02-27 05:45] LABS: Platelet Count 188 10x3/uL (150-450)
[2022-02-27] MEDS: HumaLOG 300 UNITS/3 ML VIAL SC PRN ×3 (07:40→17:37)
[2022-02-27] MEDS: Piperacillin/Tazobactam 3.375 GM in Sodium Chloride 0.9% 100 ML IVPB SCH ×3 (07:53→21:51)
[2022-02-27] MEDS ORDERED: Piperacillin/Tazobactam 3.375 GM VIAL ONE (08:01)
[2022-02-27] MEDS: Ondansetron PF 4 MG/2 ML Vial IVP PRN ×2 (09:06→17:30)
[2022-02-27] MEDS: Lantus 1000 UNITS/10 ML VIAL SC SCH ×2 (09:17→21:50)
[2022-02-27] MEDS: Enoxaparin Sodium 40 MG/0.4 ML SYRINGE SC SCH (09:24)
[2022-02-27 11:07] LABS: Amphetamine Not Detected (NotDetected); Barbiturates Screen Not Detected (NotDetected); Benzodiazepine Screen Not Detected (NotDetected); Cocaine Metabolite Screen Not Detected (NotDetected); Methadone Not Detected (NotDetected); Methamphetamine Not Detected (NotDetected); Opiate Screen Detected (NotDetected); Oxycodone Screen Not Detected (NotDetected); Phencyclidine (PCP) Not Detected (NotDetected); THC/Cannabinoid Screen Detected (NotDetected); Tricyclic Screen Not Detected (NotDetected)
[2022-02-27] MEDS ORDERED: Electrolyte Replacement Protocol 1 EACH FS PRN (17:00)
[2022-02-27 18:29] LABS: Anion Gap 18 mmol/L (10-20); BUN (Urea Nitrogen) 8 mg/dL (9.8-20.1); Calc. Creatinine Clearance 92 mL/min (70-130); Calcium 8.6 mg/dL (7.8-10.44); Carbon Dioxide 22 mmol/L (22-29); Chloride 96 mmol/L (98-107); Glucose 283 mg/dL (70-105); Magnesium 1.6 mg/dL (1.6-2.6); Potassium 4.2 mmol/L (3.5-5.1); Sodium 132 mmol/L (136-145)
[2022-02-27] MEDS: Diazepam 5 MG TAB PO SCH (21:50)
[2022-02-28] MEDS: Ondansetron PF 4 MG/2 ML Vial IVP PRN ×2 (03:58→13:43)
[2022-02-28] MEDS: Morphine 4 MG/ML VIAL SLOW IVP PRN ×5 (03:58→21:51)
[2022-02-28 04:59] LABS: Anion Gap 16 mmol/L (10-20); BUN (Urea Nitrogen) 7 mg/dL (9.8-20.1); Calc. Creatinine Clearance 96 mL/min (70-130); Calcium 8.8 mg/dL (7.8-10.44); Carbon Dioxide 25 mmol/L (22-29); Chloride 99 mmol/L (98-107); Glucose 174 mg/dL (70-105); Magnesium 1.6 mg/dL (1.6-2.6); Potassium 3.2 mmol/L (3.5-5.1); Sodium 137 mmol/L (136-145)
[2022-02-28] MEDS ORDERED: Potassium Chloride 20 MEQ TAB PO SCH ×3 (05:30→17:30)
[2022-02-28] MEDS ORDERED: Magnesium 2 GM/50 ML(in water) 2 GM in Premix Bag 1 BAG IVPB SCH (05:45)
[2022-02-28] MEDS: HumaLOG 300 UNITS/3 ML VIAL SC PRN ×3 (05:46→21:45)
[2022-02-28 05:57] LABS: #Eosinphils 0.1 10x3/uL (0.0-0.5); #Monocytes 0.2 10x3/uL (0.0-1.1); #Neutrophils 1.9 10x3/uL (1.5-8.4); %Basophils 0.9 % (0.0-2.0); %Eosinophils 1.8 % (0.0-6.0); %Lymphocytes 33.3 % (18.0-47.0); %Monocytes 6.9 % (0.0-10.0); %Neutrophils 56.8 % (40.0-75.0); Hemoglobin 11.6 g/dL (12.0-15.5); Mean Corpuscular Hemoglobin 28.8 pg (27.0-33.0); Mean Corpuscular Volume 82.1 fl (81.6-98.3); Mean Platelet Volume 10.4 fl (7.4-10.4); RBC Distribution Width 14.1 % (11.5-14.5); Red Blood Cell (RBC) Count 4.03 10x6/uL (3.90-5.03); White Blood Cell (WBC) Count 3.3 10x3/uL (3.5-10.5)
[2022-02-28 06:19] LABS: Platelet Count 216 10x3/uL (150-450)
[2022-02-28] MEDS: Piperacillin/Tazobactam 3.375 GM in Sodium Chloride 0.9% 100 ML IVPB SCH ×2 (07:24→13:45)
[2022-02-28] MEDS: Metoclopramide HCl 10 MG/2 ML VIAL IVP PRN ×2 (09:02→17:49)
[2022-02-28] MEDS: Diazepam 5 MG TAB PO SCH ×2 (10:07→21:34)
[2022-02-28] MEDS: Enoxaparin Sodium 40 MG/0.4 ML SYRINGE SC SCH (10:07)
[2022-02-28] MEDS: Lantus 1000 UNITS/10 ML VIAL SC SCH ×2 (10:08→21:33)
[2022-02-28 10:12] LABS: Potassium 3.1 mmol/L (3.5-5.1)
[2022-02-28 21:39] LABS: Potassium 3.8 mmol/L (3.5-5.1)
[2022-02-28] MEDS: metroNIDAZOLE 500 MG in Premix Bag 1 BAG IVPB SCH (21:51)
[2022-03-01] MEDS: Morphine 4 MG/ML VIAL SLOW IVP PRN ×5 (02:53→22:03)
[2022-03-01 05:41] LABS: Magnesium 1.8 mg/dL (1.6-2.6)
[2022-03-01 05:51] LABS: Anion Gap 13 mmol/L (10-20); BUN (Urea Nitrogen) 8 mg/dL (9.8-20.1); Calc. Creatinine Clearance 94 mL/min (70-130); Calcium 8.2 mg/dL (7.8-10.44); Carbon Dioxide 27 mmol/L (22-29); Chloride 101 mmol/L (98-107); Glucose 207 mg/dL (70-105); Phosphorus 3.8 mg/dL (2.3-4.7); Potassium 3.2 mmol/L (3.5-5.1); Sodium 138 mmol/L (136-145)
[2022-03-01 06:17] LABS: #Eosinphils 0.1 10x3/uL (0.0-0.5); #Monocytes 0.4 10x3/uL (0.0-1.1); #Neutrophils 2.9 10x3/uL (1.5-8.4); %Basophils 0.8 % (0.0-2.0); %Eosinophils 1.1 % (0.0-6.0); %Lymphocytes 27.7 % (18.0-47.0); %Monocytes 8.7 % (0.0-10.0); %Neutrophils 61.1 % (40.0-75.0); Hemoglobin 10.3 g/dL (12.0-15.5); Mean Corpuscular HGB CONC 33.9 g/dL (32.0-36.0); Mean Corpuscular Hemoglobin 28.9 pg (27.0-33.0); Mean Corpuscular Volume 85.4 fl (81.6-98.3); Mean Platelet Volume 10.4 fl (7.4-10.4); RBC Distribution Width 14.1 % (11.5-14.5); Red Blood Cell (RBC) Count 3.56 10x6/uL (3.90-5.03); White Blood Cell (WBC) Count 4.7 10x3/uL (3.5-10.5)
[2022-03-01 06:20] LABS: Platelet Count 214 10x3/uL (150-450)
[2022-03-01] MEDS: metroNIDAZOLE 500 MG in Premix Bag 1 BAG IVPB SCH ×3 (06:45→22:29)
[2022-03-01] MEDS: HumaLOG 300 UNITS/3 ML VIAL SC PRN ×2 (07:58→17:09)
[2022-03-01] MEDS ORDERED: Enoxaparin Sodium 40 MG/0.4 ML SYRINGE ONE (09:21)
[2022-03-01] MEDS: Diazepam 5 MG TAB PO SCH ×2 (09:23→20:24)
[2022-03-01] MEDS: Enoxaparin Sodium 40 MG/0.4 ML SYRINGE SC SCH (09:24)
[2022-03-01] MEDS: Lantus 1000 UNITS/10 ML VIAL SC SCH ×2 (09:24→20:21)
[2022-03-01] MEDS: Metoclopramide HCl 10 MG/2 ML VIAL IVP PRN (10:37)
[2022-03-01] MEDS: HYDROcodone/Acetaminophen 5/325 mg Tablet PO PRN ×2 (10:37→17:08)
[2022-03-01] MEDS ORDERED: Magnesium 2 GM/50 ML(in water) 2 GM in Premix Bag 1 BAG IVPB SCH (13:00)
[2022-03-01] MEDS ORDERED: Potassium Chloride 20 MEQ TAB PO SCH (13:00)
[2022-03-01] MEDS ORDERED: ceFAZolin 2 GM/Dextrose 50 ML IVPB ONE ×2 (14:03→14:04)
[2022-03-01] MEDS: ceFAZolin 2 GM/Dextrose 50 ML 2 GM in Premix Bag 1 BAG IVPB SCH ×2 (14:07→22:00)
[2022-03-01 18:16] LABS: Potassium 3.6 mmol/L (3.5-5.1)
[2022-03-02] MEDS: Morphine 4 MG/ML VIAL SLOW IVP PRN ×5 (02:03→19:51)
[2022-03-02] MEDS: HYDROcodone/Acetaminophen 5/325 mg Tablet PO PRN ×4 (03:16→22:59)
[2022-03-02 04:30] LABS: Anion Gap 10 mmol/L (10-20); BUN (Urea Nitrogen) 9 mg/dL (9.8-20.1); Calc. Creatinine Clearance 106 mL/min (70-130); Calcium 8.4 mg/dL (7.8-10.44); Carbon Dioxide 29 mmol/L (22-29); Chloride 103 mmol/L (98-107); Glucose 161 mg/dL (70-105); Magnesium 2.1 mg/dL (1.6-2.6); Potassium 3.6 mmol/L (3.5-5.1); Sodium 138 mmol/L (136-145)
[2022-03-02 04:31] LABS: #Eosinphils 0.1 10x3/uL (0.0-0.5); #Monocytes 0.3 10x3/uL (0.0-1.1); #Neutrophils 2.6 10x3/uL (1.5-8.4); %Basophils 0.5 % (0.0-2.0); %Eosinophils 1.8 % (0.0-6.0); %Monocytes 7.9 % (0.0-10.0); %Neutrophils 59.6 % (40.0-75.0); Hemoglobin 9.6 g/dL (12.0-15.5); Mean Corpuscular HGB CONC 33.2 g/dL (32.0-36.0); Mean Corpuscular Hemoglobin 29.1 pg (27.0-33.0); Mean Corpuscular Volume 87.6 fl (81.6-98.3); Mean Platelet Volume 10.5 fl (7.4-10.4); Platelet Count 186 10x3/uL (150-450); RBC Distribution Width 14.1 % (11.5-14.5); White Blood Cell (WBC) Count 4.3 10x3/uL (3.5-10.5)
[2022-03-02] MEDS: ceFAZolin 2 GM/Dextrose 50 ML 2 GM in Premix Bag 1 BAG IVPB SCH ×2 (06:23→14:46)
[2022-03-02] MEDS: Metoclopramide HCl 10 MG/2 ML VIAL IVP PRN (06:26)
[2022-03-02] MEDS: metroNIDAZOLE 500 MG in Premix Bag 1 BAG IVPB SCH ×2 (06:46→14:59)
[2022-03-02] MEDS: Diazepam 5 MG TAB PO SCH ×2 (09:24→20:02)
[2022-03-02] MEDS: Enoxaparin Sodium 40 MG/0.4 ML SYRINGE SC SCH (09:24)
[2022-03-02] MEDS: Lantus 1000 UNITS/10 ML VIAL SC SCH ×2 (09:24→20:03)
[2022-03-02] MEDS: HumaLOG 300 UNITS/3 ML VIAL SC PRN ×2 (12:15→20:02)
[2022-03-02] MEDS: Clindamycin 150 MG CAP PO SCH (19:57)
[2022-03-03] MEDS: Morphine 4 MG/ML VIAL SLOW IVP PRN ×4 (00:24→13:44)
[2022-03-03] MEDS: Clindamycin 150 MG CAP PO SCH ×2 (04:35→12:14)
[2022-03-03 05:10] LABS: #Eosinphils 0.1 10x3/uL (0.0-0.5); #Monocytes 0.2 10x3/uL (0.0-1.1); #Neutrophils 1.9 10x3/uL (1.5-8.4); %Eosinophils 2.3 % (0.0-6.0); %Lymphocytes 41.8 % (18.0-47.0); %Monocytes 5.9 % (0.0-10.0); %Neutrophils 48.7 % (40.0-75.0); Hemoglobin 10.2 g/dL (12.0-15.5); Mean Corpuscular HGB CONC 32.6 g/dL (32.0-36.0); Mean Corpuscular Hemoglobin 28.7 pg (27.0-33.0); Mean Corpuscular Volume 87.9 fl (81.6-98.3); Mean Platelet Volume 10.4 fl (7.4-10.4); RBC Distribution Width 14.1 % (11.5-14.5); Red Blood Cell (RBC) Count 3.56 10x6/uL (3.90-5.03); White Blood Cell (WBC) Count 3.9 10x3/uL (3.5-10.5)
[2022-03-03 05:26] LABS: Anion Gap 13 mmol/L (10-20); BUN (Urea Nitrogen) 11 mg/dL (9.8-20.1); Calc. Creatinine Clearance 108 mL/min (70-130); Calcium 8.4 mg/dL (7.8-10.44); Carbon Dioxide 24 mmol/L (22-29); Chloride 105 mmol/L (98-107); Glucose 144 mg/dL (70-105); Potassium 4.1 mmol/L (3.5-5.1); Sodium 138 mmol/L (136-145)
[2022-03-03 05:39] LABS: Platelet Count 197 10x3/uL (150-450)
[2022-03-03] MEDS: HYDROcodone/Acetaminophen 5/325 mg Tablet PO PRN ×2 (06:08→12:14)
[2022-03-03] MEDS: Diazepam 5 MG TAB PO SCH (09:15)
[2022-03-03] MEDS: Enoxaparin Sodium 40 MG/0.4 ML SYRINGE SC SCH (09:16)
[2022-03-03] MEDS: Lantus 1000 UNITS/10 ML VIAL SC SCH (09:16)
[2022-03-03] MEDS: HumaLOG 300 UNITS/3 ML VIAL SC PRN (12:16)
[2022-03-03 12:27] VITALS: BP 139/88; TEMP 97.1
[2022-03-13 10:15] LABS: Routine O & P Final report (.)
== END 2022-03-03 14:15 | disposition home or self-care (01) | DRG 392 ==
LOC: UNDOADMIN 23:32 → CSHTELE 23:32 → INTOOBSV 02-27 00:06 → CSHTELE 02-27 00:06 → OBSVTOIN 02-28 15:12
PROVIDERS: ADMIT Family Medicine; ATTEND Hospitalist
DX: K57.32 Diverticulitis of large intestine without perforation or abscess without bleeding (principal); F11.20 Opioid dependence, uncomplicated; E11.9 Type 2 diabetes mellitus without complications; G89.29 Other chronic pain; M54.50 Low back pain, unspecified; M51.36 Other intervertebral disc degeneration, lumbar region; K04.7 Periapical abscess without sinus; E87.6 Hypokalemia; F12.10 Cannabis abuse, uncomplicated; E83.42 Hypomagnesemia; Z88.1 Allergy status to other antibiotic agents; Z88.5 Allergy status to narcotic agent; Z79.4 Long term (current) use of insulin; Z90.49 Acquired absence of other specified parts of digestive tract; Z87.891 Personal history of nicotine dependence
CPT/HCPCS: 36415; 36416; 80048; 80306; 83630; 83735; 84100; 85025; 87045; 87046; 87081; 87177; 87324; 87427; 87449; 87493; 93005; 93010; 96372; 96374; 96375; 96376; G0378; J0690; J1650; J1815; J2270; J2405; J2543; J2765; J3475; J3480; J3490; Q0162

== ENCOUNTER 2022-03-14 15:53 | Emergency (ER) | payer OTHER, SELFPAY ==
[2022-03-14 16:25] LABS: Bilirubin Neg (Negative); Blood, Urine Negative (Negative); Clarity Clear (Clear); Glucose, Urine (Dipstick) >=1000 mg/dL (Negative); Ketone, Urine 5 mg/dL (Negative); Leukocyte Negative (Negative); Nitrite Negative (Negative); Protein, Urine (Dipstick) Negative (Neg-Trace); Urobilinogen Normal mg/dL (Less than 2)
[2022-03-14] MEDS ORDERED: Ondansetron PF 4 MG/2 ML Vial ONE (16:40)
[2022-03-14 16:43] LABS: #Basophils 0.1 10x3/uL (0.0-0.2); #Monocytes 0.2 10x3/uL (0.0-1.1); #Neutrophils 4.6 10x3/uL (1.5-8.4); %Basophils 1.1 % (0.0-2.0); %Eosinophils 0.6 % (0.0-6.0); %Lymphocytes 19.8 % (18.0-47.0); %Monocytes 3.4 % (0.0-10.0); %Neutrophils 74.9 % (40.0-75.0); Hemoglobin 12.9 g/dL (12.0-15.5); Mean Corpuscular HGB CONC 33.2 g/dL (32.0-36.0); Mean Corpuscular Hemoglobin 28.9 pg (27.0-33.0); Mean Corpuscular Volume 87.2 fl (81.6-98.3); Mean Platelet Volume 10.4 fl (7.4-10.4); Platelet Count 245 10x3/uL (150-450); RBC Distribution Width 13.5 % (11.5-14.5); Red Blood Cell (RBC) Count 4.46 10x6/uL (3.90-5.03); White Blood Cell (WBC) Count 6.2 10x3/uL (3.5-10.5)
[2022-03-14 16:54] LABS: ALT (SGPT) 17 U/L (8-55); AST (SGOT) 22 U/L (5-34); Albumin 4.1 g/dL (3.5-5.0); Alkaline Phosphatase 96 U/L (40-110); Anion Gap 19 mmol/L (10-20); BUN (Urea Nitrogen) 10 mg/dL (9.8-20.1); Bilirubin, Total 0.7 mg/dL (0.2-1.2); Calc. Creatinine Clearance 0 mL/min (70-130); Calcium 9.3 mg/dL (7.8-10.44); Carbon Dioxide 21 mmol/L (22-29); Chloride 98 mmol/L (98-107); Globulin 3.4 g/dL (2.4-3.5); Glucose 293 mg/dL (70-105); Lipase 8 U/L (8-78); Magnesium 1.6 mg/dL (1.6-2.6); Potassium 4.8 mmol/L (3.5-5.1); Protein, Total 7.5 g/dL (6.0-8.3); Sodium 133 mmol/L (136-145)
[2022-03-14] MEDS ORDERED: Haloperidol Lactate 5 MG/ML VIAL ONE (17:03)
[2022-03-14 17:28] LABS: Platelet Morphology Comment Appears Adequate; RBC Morphology Normal
[2022-03-14] MEDS ORDERED: Buprenorphine 8mg/Naloxone 2mg per 1 FILM SL SCH (18:45)
== END 2022-03-14 19:34 ==
LOC: CSHERS 15:53
DX: R10.9 Unspecified abdominal pain (principal); R11.2 Nausea with vomiting, unspecified; F17.290 Nicotine dependence, other tobacco product, uncomplicated; E11.9 Type 2 diabetes mellitus without complications
CPT/HCPCS: 80053; 81003; 83690; 83735; 85025; 93005; 94760; 96374; J1630; J2405

== ENCOUNTER 2022-08-15 22:18 | Inpatient (IN) | payer OTHER, SELFPAY ==
[2022-08-15 22:45] VITALS: BMI 25.1
[2022-08-15] MEDS ORDERED: Guaifenesin DM 100-10/5 ML UDCUP PO PRN (23:09)
[2022-08-15] MEDS ORDERED: Acetaminophen 325 MG TAB PO PRN (23:09)
[2022-08-15] MEDS ORDERED: Calcium Carbonate 500 MG ChewTAB PO PRN (23:09)
[2022-08-15] MEDS ORDERED: Dextrose 50% Abboject 50 ML SYRINGE SLOW IVP PRN (23:09)
[2022-08-15] MEDS ORDERED: Dextrose 5% in Water 1,000 ML IV PRN (23:09)
[2022-08-15] MEDS ORDERED: Morphine 2 MG/ML VIAL SLOW IVP PRN (23:28)
[2022-08-15] MEDS ORDERED: Metoclopramide HCl 10 MG/2 ML VIAL IVP SCH (23:30)
[2022-08-15] MEDS ORDERED: Lactated Ringer's 1,000 ML IV SCH (23:30)
[2022-08-15] MEDS ORDERED: Lorazepam 2 MG/ML VIAL SLOW IVP SCH (23:30)
[2022-08-15] MEDS: HYDROcodone/Acetaminophen 5/325 mg Tablet PO PRN (23:40)
[2022-08-15] MEDS: Labetalol HCl 100 MG/20 ML VIAL SLOW IVP PRN (23:41)
[2022-08-16] MEDS ORDERED: Famotidine/PF 20 mg/2ml Vial SLOW IVP SCH (00:15)
[2022-08-16] MEDS: Ondansetron PF 4 MG/2 ML Vial IVP PRN ×2 (03:53→17:05)
[2022-08-16] MEDS: HumaLOG 300 UNITS/3 ML VIAL SC PRN ×2 (05:15→13:16)
[2022-08-16] MEDS: Labetalol HCl 100 MG/20 ML VIAL SLOW IVP PRN (05:15)
[2022-08-16] MEDS: Morphine 4 MG/ML VIAL SLOW IVP PRN ×4 (05:17→21:09)
[2022-08-16 05:30] LABS: Amphetamine Not Detected (NotDetected); Barbiturates Screen Not Detected (NotDetected); Benzodiazepine Screen Detected (NotDetected); Cocaine Metabolite Screen Not Detected (NotDetected); Methadone Not Detected (NotDetected); Methamphetamine Not Detected (NotDetected); Opiate Screen Detected (NotDetected); Oxycodone Screen Not Detected (NotDetected); Phencyclidine (PCP) Not Detected (NotDetected); THC/Cannabinoid Screen Detected (NotDetected); Tricyclic Screen Not Detected (NotDetected)
[2022-08-16] MEDS ORDERED: Promethazine HCl 12.5 MG, Admixture Fee 1 EACH in Sodium Chloride 0.9% 50 ML IVPB PRN (05:37)
[2022-08-16] MEDS ORDERED: cloNIDine 0.1 MG TAB PO SCH (05:45)
[2022-08-16 06:55] LABS: #Monocytes 0.1 10x3/uL (0.0-1.1); #Neutrophils 7.2 10x3/uL (1.5-8.4); %Basophils 0.5 % (0.0-2.0); %Lymphocytes 6.4 % (18.0-47.0); %Monocytes 1.5 % (0.0-10.0); %Neutrophils 91.1 % (40.0-75.0); Hemoglobin 10.1 g/dL (12.0-15.5); Mean Corpuscular HGB CONC 31.7 g/dL (32.0-36.0); Mean Corpuscular Hemoglobin 26.6 pg (27.0-33.0); Mean Corpuscular Volume 84.2 fl (81.6-98.3); Mean Platelet Volume 10.2 fl (7.4-10.4); Platelet Count 339 10x3/uL (150-450); RBC Distribution Width 13.8 % (11.5-14.5); Red Blood Cell (RBC) Count 3.79 10x6/uL (3.90-5.03); White Blood Cell (WBC) Count 7.9 10x3/uL (3.5-10.5)
[2022-08-16 06:56] LABS: ALT (SGPT) 10 U/L (8-55); AST (SGOT) 11 U/L (5-34); Alkaline Phosphatase 134 U/L (40-110); Anion Gap 24 mmol/L (10-20); BUN (Urea Nitrogen) 13 mg/dL (9.8-20.1); Bilirubin, Total 0.5 mg/dL (0.2-1.2); Calc. Creatinine Clearance 82 mL/min (70-130); Calcium 9.3 mg/dL (7.8-10.44); Carbon Dioxide 15 mmol/L (22-29); Chloride 103 mmol/L (98-107); Estimated GFR 79; Globulin 3.6 g/dL (2.4-3.5); Glucose 477 mg/dL (70-105); Magnesium 1.7 mg/dL (1.6-2.6); Protein, Total 7.6 g/dL (6.0-8.3); Sodium 138 mmol/L (136-145)
[2022-08-16] MEDS: HYDROcodone/Acetaminophen 5/325 mg Tablet PO PRN ×2 (07:28→22:55)
[2022-08-16] MEDS ORDERED: Lantus 1000 UNITS/10 ML VIAL SC SCH (09:00)
[2022-08-16] MEDS: Famotidine/PF 20 mg/2ml Vial SLOW IVP SCH ×2 (11:11→21:11)
[2022-08-16] MEDS: Losartan 25 MG TAB PO SCH (11:13)
[2022-08-16] MEDS: Enoxaparin Sodium 40 MG/0.4 ML SYRINGE SC SCH (11:13)
[2022-08-16 12:44] LABS: Hemoglobin A1c 8.8 % (4.0-6.0)
[2022-08-16] MEDS ORDERED: HumaLOG 300 UNITS/3 ML VIAL SC PRN (18:06)
[2022-08-16] MEDS: Lantus 1000 UNITS/10 ML VIAL SC SCH (21:10)
[2022-08-17] MEDS: Ondansetron PF 4 MG/2 ML Vial IVP PRN ×3 (03:40→21:44)
[2022-08-17] MEDS: Morphine 4 MG/ML VIAL SLOW IVP PRN ×5 (03:40→21:43)
[2022-08-17 04:34] LABS: #Basophils 0.1 10x3/uL (0.0-0.2); #Monocytes 0.4 10x3/uL (0.0-1.1); #Neutrophils 4.9 10x3/uL (1.5-8.4); %Basophils 0.8 % (0.0-2.0); %Eosinophils 0.6 % (0.0-6.0); %Lymphocytes 18.6 % (18.0-47.0); %Monocytes 6.2 % (0.0-10.0); %Neutrophils 73.5 % (40.0-75.0); Hemoglobin 9.7 g/dL (12.0-15.5); Mean Corpuscular HGB CONC 31.9 g/dL (32.0-36.0); Mean Corpuscular Hemoglobin 26.4 pg (27.0-33.0); Mean Corpuscular Volume 82.6 fl (81.6-98.3); Mean Platelet Volume 11.5 fl (7.4-10.4); Platelet Count 320 10x3/uL (150-450); RBC Distribution Width 14.2 % (11.5-14.5); Red Blood Cell (RBC) Count 3.68 10x6/uL (3.90-5.03); White Blood Cell (WBC) Count 6.7 10x3/uL (3.5-10.5)
[2022-08-17 04:48] LABS: Anion Gap 17 mmol/L (10-20); BUN (Urea Nitrogen) 11 mg/dL (9.8-20.1); Calc. Creatinine Clearance 105 mL/min (70-130); Calcium 9.2 mg/dL (7.8-10.44); Carbon Dioxide 22 mmol/L (22-29); Chloride 103 mmol/L (98-107); Estimated GFR 104; Glucose 83 mg/dL (70-105); Potassium 3.6 mmol/L (3.5-5.1); Sodium 138 mmol/L (136-145)
[2022-08-17] MEDS: Enoxaparin Sodium 40 MG/0.4 ML SYRINGE SC SCH (10:18)
[2022-08-17] MEDS: Famotidine/PF 20 mg/2ml Vial SLOW IVP SCH ×2 (10:19→20:43)
[2022-08-17] MEDS: HYDROcodone/Acetaminophen 5/325 mg Tablet PO PRN ×2 (10:19→20:43)
[2022-08-17] MEDS: Lantus 1000 UNITS/10 ML VIAL SC SCH ×2 (10:21→20:50)
[2022-08-17] MEDS: Losartan 25 MG TAB PO SCH (14:22)
[2022-08-17] MEDS ORDERED: Bisacodyl 10 MG SUPP PR PRN (17:58)
[2022-08-17] MEDS: Senokot S 8.6-50 MG TAB PO SCH (20:50)
[2022-08-17] MEDS: Polyethylene Glycol 3350 17 GM Packet PO SCH (20:50)
[2022-08-18 00:24] LABS: Bilirubin Neg (Negative); Blood, Urine 10 (Negative); Clarity Clear (Clear); Glucose, Urine (Dipstick) Normal (Negative); Ketone, Urine Negative (Negative); Leukocyte 25 (Negative); Nitrite Negative (Negative); Protein, Urine (Dipstick) 15 mg/dl (Neg-Trace); Urobilinogen Normal mg/dL (Less than 2)
[2022-08-18 00:25] LABS: Urine Culture Reflex No No
[2022-08-18 00:35] LABS: Bacteria/HPF None Seen HPF (None Seen); RBC/HPF 0-3 HPF (0-3); Squamous Epithelial 0-3 HPF (0-3); WBC/HPF 0-3 HPF (0-3)
[2022-08-18] MEDS: HYDROcodone/Acetaminophen 5/325 mg Tablet PO PRN (00:54)
[2022-08-18] MEDS: Morphine 4 MG/ML VIAL SLOW IVP PRN ×6 (01:55→23:24)
[2022-08-18 05:27] LABS: Anion Gap 14 mmol/L (10-20); BUN (Urea Nitrogen) 9 mg/dL (9.8-20.1); Calc. Creatinine Clearance 104 mL/min (70-130); Calcium 8.4 mg/dL (7.8-10.44); Carbon Dioxide 25 mmol/L (22-29); Chloride 101 mmol/L (98-107); Estimated GFR 103; Glucose 218 mg/dL (70-105); Magnesium 1.6 mg/dL (1.6-2.6); Potassium 3.5 mmol/L (3.5-5.1); Sodium 136 mmol/L (136-145)
[2022-08-18 05:30] LABS: #Eosinphils 0.1 10x3/uL (0.0-0.5); #Monocytes 0.4 10x3/uL (0.0-1.1); #Neutrophils 3.2 10x3/uL (1.5-8.4); %Basophils 0.8 % (0.0-2.0); %Lymphocytes 27.9 % (18.0-47.0); %Neutrophils 61.9 % (40.0-75.0); Hemoglobin 8.4 g/dL (12.0-15.5); Mean Corpuscular HGB CONC 32.9 g/dL (32.0-36.0); Mean Corpuscular Hemoglobin 26.5 pg (27.0-33.0); Mean Corpuscular Volume 80.4 fl (81.6-98.3); Mean Platelet Volume 9.6 fl (7.4-10.4); Platelet Count 248 10x3/uL (150-450); Red Blood Cell (RBC) Count 3.17 10x6/uL (3.90-5.03); White Blood Cell (WBC) Count 5.1 10x3/uL (3.5-10.5)
[2022-08-18] MEDS: HumaLOG 300 UNITS/3 ML VIAL SC PRN (06:11)
[2022-08-18] MEDS: Pantoprazole 40 MG VIAL IVP SCH ×2 (09:17→20:42)
[2022-08-18] MEDS: Senokot S 8.6-50 MG TAB PO SCH ×2 (09:18→20:41)
[2022-08-18] MEDS: Losartan 25 MG TAB PO SCH (09:19)
[2022-08-18] MEDS: Polyethylene Glycol 3350 17 GM Packet PO SCH ×2 (09:19→21:02)
[2022-08-18] MEDS: Lantus 1000 UNITS/10 ML VIAL SC SCH ×2 (10:33→20:56)
[2022-08-18] MEDS ORDERED: Gabapentin 300 MG CAP PO SCH (11:00)
[2022-08-18 12:00] LABS: Hemoglobin A1c 8.6 % (4.0-6.0)
[2022-08-18 12:40] LABS: Hemoglobin 9.5 g/dL (12.0-15.5); Mean Corpuscular HGB CONC 33.9 g/dL (32.0-36.0); Mean Corpuscular Hemoglobin 26.6 pg (27.0-33.0); Mean Corpuscular Volume 78.4 fl (81.6-98.3); Mean Platelet Volume 10.6 fl (7.4-10.4); Platelet Count 243 10x3/uL (150-450); RBC Distribution Width 14.2 % (11.5-14.5); Red Blood Cell (RBC) Count 3.57 10x6/uL (3.90-5.03); White Blood Cell (WBC) Count 6.3 10x3/uL (3.5-10.5)
[2022-08-18] MEDS: Gabapentin 300 MG CAP PO SCH ×2 (14:57→20:41)
[2022-08-18] MEDS: Melatonin 3 MG TAB PO SCH (20:42)
[2022-08-19] MEDS ORDERED: Cosyntropin 250 MCG VIAL SLOW IVP SCH (04:00)
[2022-08-19] MEDS: Morphine 4 MG/ML VIAL SLOW IVP PRN ×5 (04:26→20:41)
[2022-08-19] MEDS: HumaLOG 300 UNITS/3 ML VIAL SC PRN ×2 (04:38→15:38)
[2022-08-19] MEDS: Pantoprazole 40 MG VIAL IVP SCH ×2 (08:27→20:38)
[2022-08-19] MEDS: Gabapentin 300 MG CAP PO SCH ×3 (08:30→23:29)
[2022-08-19] MEDS: Losartan 25 MG TAB PO SCH (08:31)
[2022-08-19 08:35] LABS: #Basophils 0.1 10x3/uL (0.0-0.2); #Eosinphils 0.1 10x3/uL (0.0-0.5); #Monocytes 0.4 10x3/uL (0.0-1.1); #Neutrophils 5.1 10x3/uL (1.5-8.4); %Basophils 0.7 % (0.0-2.0); %Eosinophils 1.3 % (0.0-6.0); %Lymphocytes 19.6 % (18.0-47.0); %Monocytes 6.2 % (0.0-10.0); %Neutrophils 71.5 % (40.0-75.0); Hemoglobin 9.6 g/dL (12.0-15.5); Mean Corpuscular HGB CONC 32.5 g/dL (32.0-36.0); Mean Corpuscular Hemoglobin 26.2 pg (27.0-33.0); Mean Corpuscular Volume 80.6 fl (81.6-98.3); Mean Platelet Volume 9.6 fl (7.4-10.4); Platelet Count 350 10x3/uL (150-450); Red Blood Cell (RBC) Count 3.66 10x6/uL (3.90-5.03); White Blood Cell (WBC) Count 7.1 10x3/uL (3.5-10.5)
[2022-08-19 08:59] LABS: Iron 37 ug/dL (50-170); Iron Binding Capacity, Total 371 mcg/dL (265-497)
[2022-08-19 09:01] LABS: Anion Gap 15 mmol/L (10-20); BUN (Urea Nitrogen) 13 mg/dL (9.8-20.1); Calc. Creatinine Clearance 113 mL/min (70-130); Calcium 9.3 mg/dL (7.8-10.44); Carbon Dioxide 26 mmol/L (22-29); Chloride 100 mmol/L (98-107); Estimated GFR 106; Glucose 70 mg/dL (70-105); Iron 37 ug/dL (50-170); Iron Binding Capacity, Total 369 mcg/dL (265-497); Magnesium 1.7 mg/dL (1.6-2.6); Potassium 3.7 mmol/L (3.5-5.1); Sodium 137 mmol/L (136-145)
[2022-08-19] MEDS: Lantus 1000 UNITS/10 ML VIAL SC SCH ×2 (11:14→20:38)
[2022-08-19] MEDS: Senokot S 8.6-50 MG TAB PO SCH ×2 (11:15→20:39)
[2022-08-19] MEDS: Polyethylene Glycol 3350 17 GM Packet PO SCH ×2 (11:15→23:29)
[2022-08-19] MEDS ORDERED: oxyCODONE/Acetaminophen 5 mg/325 mg Tablet PO PRN (12:49)
[2022-08-19] MEDS ORDERED: Morphine 2 MG/ML VIAL SLOW IVP SCH ×2 (13:00)
[2022-08-19] MEDS ORDERED: oxyCODONE 5 MG TAB PO PRN (15:10)
[2022-08-19] MEDS ORDERED: Acetaminophen 325 MG TAB PO PRN (15:15)
[2022-08-19] MEDS: oxyCODONE 5 MG TAB PO PRN (15:34)
[2022-08-19] MEDS ORDERED: GoLYTELY 4,000 ml Bottle PO SCH (17:30)
[2022-08-19] MEDS ORDERED: Labetalol HCl 100 MG/20 ML VIAL SLOW IVP SCH (20:30)
[2022-08-19] MEDS: Ondansetron PF 4 MG/2 ML Vial IVP PRN (20:38)
[2022-08-19] MEDS: Metoclopramide HCl 10 MG/2 ML VIAL IVP SCH (20:38)
[2022-08-19] MEDS: Melatonin 3 MG TAB PO SCH (20:39)
[2022-08-20] MEDS: Ondansetron PF 4 MG/2 ML Vial IVP PRN (02:16)
[2022-08-20] MEDS: Morphine 4 MG/ML VIAL SLOW IVP PRN ×4 (02:16→14:39)
[2022-08-20] MEDS: oxyCODONE 5 MG TAB PO PRN ×2 (04:49→08:38)
[2022-08-20] MEDS: Labetalol HCl 100 MG/20 ML VIAL SLOW IVP PRN (05:14)
[2022-08-20 05:26] LABS: #Basophils 0.1 10x3/uL (0.0-0.2); #Monocytes 0.4 10x3/uL (0.0-1.1); #Neutrophils 4.2 10x3/uL (1.5-8.4); %Basophils 0.8 % (0.0-2.0); %Eosinophils 0.5 % (0.0-6.0); %Monocytes 7.3 % (0.0-10.0); %Neutrophils 70.7 % (40.0-75.0); Hemoglobin 9.7 g/dL (12.0-15.5); Mean Corpuscular HGB CONC 33.9 g/dL (32.0-36.0); Mean Corpuscular Hemoglobin 26.6 pg (27.0-33.0); Mean Corpuscular Volume 78.4 fl (81.6-98.3); Mean Platelet Volume 10.3 fl (7.4-10.4); Platelet Count 276 10x3/uL (150-450); RBC Distribution Width 14.1 % (11.5-14.5); Red Blood Cell (RBC) Count 3.65 10x6/uL (3.90-5.03); White Blood Cell (WBC) Count 5.9 10x3/uL (3.5-10.5)
[2022-08-20 05:35] LABS: Anion Gap 19 mmol/L (10-20); BUN (Urea Nitrogen) 8 mg/dL (9.8-20.1); Calc. Creatinine Clearance 107 mL/min (70-130); Calcium 8.9 mg/dL (7.8-10.44); Carbon Dioxide 21 mmol/L (22-29); Chloride 100 mmol/L (98-107); Estimated GFR 104; Glucose 244 mg/dL (70-105); Magnesium 1.5 mg/dL (1.6-2.6); Potassium 3.6 mmol/L (3.5-5.1); Sodium 136 mmol/L (136-145)
[2022-08-20] MEDS ORDERED: Potassium Chloride 20 MEQ TAB PO SCH (08:00)
[2022-08-20] MEDS ORDERED: Ferrous Sulfate 325 MG TAB PO SCH (08:00)
[2022-08-20 08:23] VITALS: BP 152/95; TEMP 97.5
[2022-08-20] MEDS: Lantus 1000 UNITS/10 ML VIAL SC SCH (08:36)
[2022-08-20] MEDS: Losartan 25 MG TAB PO SCH (08:36)
[2022-08-20] MEDS: Gabapentin 300 MG CAP PO SCH ×2 (08:36→14:39)
[2022-08-20] MEDS: Magnesium 2 GM/50 ML(in water) 2 GM in Premix Bag 1 BAG IVPB SCH ×2 (08:37→14:15)
[2022-08-20] MEDS: Pantoprazole 40 MG VIAL IVP SCH (08:37)
[2022-08-20] MEDS: Senokot S 8.6-50 MG TAB PO SCH (08:37)
[2022-08-20] MEDS: Polyethylene Glycol 3350 17 GM Packet PO SCH (08:37)
[2022-08-20] MEDS: Metoclopramide HCl 10 MG/2 ML VIAL IVP SCH (08:41)
[2022-08-20] MEDS ORDERED: PROPOFOL 20 ML ONE ×2 (13:25)
[2022-08-20] MEDS ORDERED: Fentanyl 100 MCG/2 ML VIAL ONE (13:25)
[2022-08-20] MEDS ORDERED: Magnesium 2 GM/50 ML(in water) 2 GM in Premix Bag 1 BAG IVPB SCH (15:00)
[2022-08-22 13:14] LABS: EliA Celiac New Method **** NEW METHOD ****; t-Transglutaminase (tTG) IgA 0.8 EliAU/mL (<7 Negative)
== END 2022-08-20 14:20 | disposition home or self-care (01) | DRG 74 ==
LOC: CSHTELE 22:18 → INTOOBSV 22:18 → CSHTELE 22:35 → OBSVTOIN 08-19 08:44
PROVIDERS: ADMIT Student in an Organized Health Care Education/Training Program; ATTEND Family Medicine
PROC: 0DJ08ZZ Inspection of Upper Intestinal Tract, Via Natural or Artificial Opening Endoscopic (ICD-10-PCS; principal; 2022-08-20)
PROC: 0DJD8ZZ Inspection of Lower Intestinal Tract, Via Natural or Artificial Opening Endoscopic (ICD-10-PCS; 2022-08-20)
DX: E11.43 Type 2 diabetes mellitus with diabetic autonomic (poly)neuropathy (principal); N13.30 Unspecified hydronephrosis; E87.2 Acidosis; K59.00 Constipation, unspecified; R11.2 Nausea with vomiting, unspecified; M47.816 Spondylosis without myelopathy or radiculopathy, lumbar region; G89.29 Other chronic pain; F12.10 Cannabis abuse, uncomplicated; E11.65 Type 2 diabetes mellitus with hyperglycemia; D50.9 Iron deficiency anemia, unspecified; K31.84 Gastroparesis; M43.16 Spondylolisthesis, lumbar region; Z88.1 Allergy status to other antibiotic agents; Z88.8 Allergy status to other drugs, medicaments and biological substances; Z79.4 Long term (current) use of insulin; Z79.899 Other long term (current) drug therapy; Z90.49 Acquired absence of other specified parts of digestive tract; Z98.890 Other specified postprocedural states; Z98.51 Tubal ligation status; Z87.891 Personal history of nicotine dependence
CPT/HCPCS: 36415; 36416; 80048; 80053; 80306; 80400; 81001; 82533; 82728; 83036; 83516; 83540; 83550; 83605; 83735; 84443; 85025; 85046; 86850; 86900; 86901; 87086; 93005; 93010; 94760; 96372; 96374; 96375; 96376; C9113; G0378; J0834; J1650; J1815; J2060; J2270; J2405; J2704; J2765; J3010; J3475; J7120; S0028

== ENCOUNTER 2023-01-04 16:34 | Inpatient (IN) | payer MEDICAID, OTHER ==
[2023-01-04] MEDS ORDERED: Dextrose 5% in Water 1,000 ML IV PRN (17:23)
[2023-01-04] MEDS ORDERED: Dextrose 50% Abboject 50 ML SYRINGE SLOW IVP PRN (17:23)
[2023-01-04] MEDS ORDERED: Acetaminophen 325 MG TAB PO PRN (17:28)
[2023-01-04] MEDS ORDERED: HYDROcodone/Acetaminophen 5/325 mg Tablet PO PRN (17:32)
[2023-01-04] MEDS ORDERED: Senokot S 8.6-50 MG TAB PO PRN (18:05)
[2023-01-04] MEDS: Ondansetron PF 4 MG/2 ML Vial IVP PRN (18:12)
[2023-01-04] MEDS: D5 1/2 NS w/20 mEq KCL 1,000 ML IV SCH (18:13)
[2023-01-04] MEDS: Morphine 2 MG/ML VIAL SLOW IVP PRN ×2 (18:22→22:06)
[2023-01-04] MEDS: HumaLOG 300 UNITS/3 ML VIAL SC PRN ×2 (18:25→20:34)
[2023-01-04] MEDS ORDERED: Lantus 1000 UNITS/10 ML VIAL SC SCH (18:45)
[2023-01-04] MEDS ORDERED: Magnesium 2 GM/50 ML(in water) 2 GM in Premix Bag 1 BAG IVPB SCH (19:00)
[2023-01-04] MEDS: Gabapentin 300 MG CAP PO SCH (20:30)
[2023-01-04] MEDS ORDERED: Promethazine HCl 12.5 MG, Admixture Fee 1 EACH in Sodium Chloride 0.9% 50 ML IVPB SCH (21:30)
[2023-01-04 21:51] LABS: Anion Gap 17 mmol/L (10-20); BUN (Urea Nitrogen) 10 mg/dL (9.8-20.1); Calc. Creatinine Clearance 102 mL/min (70-130); Calcium 8.7 mg/dL (7.8-10.44); Carbon Dioxide 23 mmol/L (22-29); Chloride 101 mmol/L (98-107); Estimated GFR 93; Glucose 226 mg/dL (70-105); Potassium 3.1 mmol/L (3.5-5.1); Sodium 138 mmol/L (136-145)
[2023-01-04 21:59] LABS: Troponin I Less than 0.010 ng/mL (< 0.028)
[2023-01-05] MEDS: Ondansetron PF 4 MG/2 ML Vial IVP PRN ×2 (00:31→08:18)
[2023-01-05 00:39] VITALS: BMI 25.0
[2023-01-05] MEDS ORDERED: FLU VACC QS2022-23(6MOS UP)/PF 60 MCG/0.5 ML SYRINGE IM ONE (01:00)
[2023-01-05] MEDS: Morphine 2 MG/ML VIAL SLOW IVP PRN ×7 (02:04→22:50)
[2023-01-05] MEDS ORDERED: Lactated Ringer's 1,000 ML IV SCH (02:45)
[2023-01-05] MEDS ORDERED: Potassium Chloride 20 MEQ TAB PO SCH (02:45)
[2023-01-05] MEDS: HumaLOG 300 UNITS/3 ML VIAL SC PRN ×3 (04:09→21:31)
[2023-01-05 04:14] LABS: #Monocytes 0.5 10x3/uL (0.0-1.1); #Neutrophils 4.7 10x3/uL (1.5-8.4); %Basophils 0.5 % (0.0-2.0); %Eosinophils 0.3 % (0.0-6.0); %Lymphocytes 14.9 % (18.0-47.0); %Monocytes 8.5 % (0.0-10.0); %Neutrophils 75.6 % (40.0-75.0); Mean Corpuscular HGB CONC 31.9 g/dL (32.0-36.0); Mean Corpuscular Hemoglobin 24.6 pg (27.0-33.0); Mean Platelet Volume 9.9 fl (7.4-10.4); Platelet Count 310 10x3/uL (150-450); RBC Distribution Width 15.8 % (11.5-14.5); Red Blood Cell (RBC) Count 3.66 10x6/uL (3.90-5.03); White Blood Cell (WBC) Count 6.2 10x3/uL (3.5-10.5)
[2023-01-05 04:31] LABS: Anion Gap 16 mmol/L (10-20); BUN (Urea Nitrogen) 7 mg/dL (9.8-20.1); Calc. Creatinine Clearance 103 mL/min (70-130); Calcium 8.6 mg/dL (7.8-10.44); Carbon Dioxide 21 mmol/L (22-29); Chloride 101 mmol/L (98-107); Estimated GFR 103; Glucose 281 mg/dL (70-105); Magnesium 2.1 mg/dL (1.6-2.6); Sodium 135 mmol/L (136-145)
[2023-01-05] MEDS ORDERED: Potassium Chloride 20 MEQ in Premix Bag 1 BAG IVPB SCH ×2 (04:45→07:00)
[2023-01-05] MEDS: Gabapentin 300 MG CAP PO SCH (07:28)
[2023-01-05] MEDS ORDERED: Morphine 2 MG/ML VIAL SLOW IVP SCH ×2 (08:00→10:00)
[2023-01-05] MEDS ORDERED: Losartan 25 MG TAB PO SCH (09:00)
[2023-01-05] MEDS: D5 1/2 NS w/20 mEq KCL 1,000 ML IV SCH ×6 (09:02→21:45)
[2023-01-05] MEDS ORDERED: HumaLOG 300 UNITS/3 ML VIAL SC PRN (09:52)
[2023-01-05] MEDS ORDERED: Sodium Chloride 0.9% 1,000 ML IV SCH (10:00)
[2023-01-05] MEDS ORDERED: Lantus 1000 UNITS/10 ML VIAL SC SCH (10:00)
[2023-01-05] MEDS: Promethazine HCl 25 MG, Admixture Fee 1 EACH in Sodium Chloride 0.9% 50 ML IVPB PRN ×3 (10:43→22:51)
[2023-01-05] MEDS: Ondansetron PF 4 MG/2 ML Vial IVP SCH ×3 (11:29→21:26)
[2023-01-05] MEDS ORDERED: cloNIDine 0.1 MG TAB PO PRN (16:48)
[2023-01-05 18:57] LABS: Anion Gap 17 mmol/L (10-20); BUN (Urea Nitrogen) 6 mg/dL (9.8-20.1); Calc. Creatinine Clearance 103 mL/min (70-130); Calcium 8.8 mg/dL (7.8-10.44); Carbon Dioxide 19 mmol/L (22-29); Chloride 104 mmol/L (98-107); Estimated GFR 103; Glucose 114 mg/dL (70-105); Phosphorus 2.8 mg/dL (2.3-4.7); Potassium 3.9 mmol/L (3.5-5.1); Sodium 136 mmol/L (136-145)
[2023-01-05] MEDS ORDERED: Diazepam 2 MG TAB PO PRN (20:13)
[2023-01-05 20:51] LABS: Amphetamine Not Detected (NotDetected); Barbiturates Screen Not Detected (NotDetected); Benzodiazepine Screen Not Detected (NotDetected); Cocaine Metabolite Screen Not Detected (NotDetected); Methadone Not Detected (NotDetected); Methamphetamine Not Detected (NotDetected); Opiate Screen Detected (NotDetected); Oxycodone Screen Not Detected (NotDetected); Phencyclidine (PCP) Not Detected (NotDetected); THC/Cannabinoid Screen Detected (NotDetected); Tricyclic Screen Not Detected (NotDetected)
[2023-01-05] MEDS ORDERED: Diazepam 5 MG TAB PO SCH (21:00)
[2023-01-05] MEDS: Diazepam 5 MG TAB PO PRN (21:25)
[2023-01-05] MEDS: oxyCODONE 5 MG TAB PO PRN (21:25)
[2023-01-06] MEDS: Morphine 2 MG/ML VIAL SLOW IVP PRN ×5 (03:12→21:18)
[2023-01-06] MEDS: Ondansetron PF 4 MG/2 ML Vial IVP SCH ×4 (03:35→22:50)
[2023-01-06] MEDS: oxyCODONE 5 MG TAB PO PRN ×3 (04:29→21:02)
[2023-01-06] MEDS: D5 1/2 NS w/20 mEq KCL 1,000 ML IV SCH ×3 (04:30→12:23)
[2023-01-06 04:31] LABS: Anion Gap 16 mmol/L (10-20); BUN (Urea Nitrogen) 5 mg/dL (9.8-20.1); Calc. Creatinine Clearance 93 mL/min (70-130); Calcium 9.3 mg/dL (7.8-10.44); Carbon Dioxide 22 mmol/L (22-29); Chloride 105 mmol/L (98-107); Estimated GFR 92; Glucose 154 mg/dL (70-105); Potassium 3.6 mmol/L (3.5-5.1); Sodium 139 mmol/L (136-145)
[2023-01-06 04:54] LABS: Magnesium 1.8 mg/dL (1.6-2.6); Phosphorus 2.3 mg/dL (2.3-4.7)
[2023-01-06 05:06] LABS: #Basophils 0.1 10x3/uL (0.0-0.2); #Eosinphils 0.1 10x3/uL (0.0-0.5); #Monocytes 0.4 10x3/uL (0.0-1.1); #Neutrophils 4.3 10x3/uL (1.5-8.4); %Lymphocytes 17.7 % (18.0-47.0); %Monocytes 6.2 % (0.0-10.0); %Neutrophils 73.8 % (40.0-75.0); Hemoglobin 10.8 g/dL (12.0-15.5); Mean Corpuscular HGB CONC 31.5 g/dL (32.0-36.0); Mean Corpuscular Hemoglobin 24.9 pg (27.0-33.0); Mean Corpuscular Volume 79.2 fl (81.6-98.3); Mean Platelet Volume 9.9 fl (7.4-10.4); Platelet Count 337 10x3/uL (150-450); RBC Distribution Width 16.1 % (11.5-14.5); Red Blood Cell (RBC) Count 4.33 10x6/uL (3.90-5.03); White Blood Cell (WBC) Count 5.8 10x3/uL (3.5-10.5)
[2023-01-06] MEDS: Promethazine HCl 25 MG, Admixture Fee 1 EACH in Sodium Chloride 0.9% 50 ML IVPB PRN (05:18)
[2023-01-06] MEDS: HumaLOG 300 UNITS/3 ML VIAL SC PRN ×2 (08:08→18:35)
[2023-01-06] MEDS ORDERED: Dicyclomine 10 MG CAP PO PRN (10:53)
[2023-01-06] MEDS ORDERED: Promethazine 25 MG TAB PO PRN (10:59)
[2023-01-06] MEDS ORDERED: HumaLOG 300 UNITS/3 ML VIAL SC PRN (19:42)
[2023-01-06] MEDS ORDERED: Lantus 1000 UNITS/10 ML VIAL SC SCH (21:00)
[2023-01-06] MEDS ORDERED: D5 1/2 NS w/20 mEq KCL 1,000 ML IV SCH (21:15)
[2023-01-06] MEDS: Diazepam 5 MG TAB PO PRN (22:43)
[2023-01-07] MEDS: oxyCODONE 5 MG TAB PO PRN ×2 (00:12→14:13)
[2023-01-07] MEDS: Morphine 2 MG/ML VIAL SLOW IVP PRN ×3 (03:38→12:17)
[2023-01-07] MEDS: Ondansetron ODT 4 MG TAB PO PRN ×2 (03:38→09:55)
[2023-01-07] MEDS: Ondansetron PF 4 MG/2 ML Vial IVP SCH ×2 (03:40→09:56)
[2023-01-07] MEDS: D5 1/2 NS w/20 mEq KCL 1,000 ML IV SCH (05:28)
[2023-01-07 05:38] LABS: Anion Gap 15 mmol/L (10-20); BUN (Urea Nitrogen) 7 mg/dL (9.8-20.1); Calc. Creatinine Clearance 78 mL/min (70-130); Calcium 8.6 mg/dL (7.8-10.44); Carbon Dioxide 20 mmol/L (22-29); Chloride 103 mmol/L (98-107); Estimated GFR 75; Glucose 351 mg/dL (70-105); Sodium 133 mmol/L (136-145)
[2023-01-07 05:49] LABS: #Basophils 0.1 10x3/uL (0.0-0.2); #Eosinphils 0.1 10x3/uL (0.0-0.5); #Monocytes 0.4 10x3/uL (0.0-1.1); #Neutrophils 2.9 10x3/uL (1.5-8.4); %Eosinophils 2.2 % (0.0-6.0); %Lymphocytes 30.6 % (18.0-47.0); %Monocytes 7.7 % (0.0-10.0); %Neutrophils 57.7 % (40.0-75.0); Hemoglobin 9.6 g/dL (12.0-15.5); Mean Corpuscular HGB CONC 32.2 g/dL (32.0-36.0); Mean Corpuscular Volume 77.6 fl (81.6-98.3); Mean Platelet Volume 10.8 fl (7.4-10.4); Platelet Count 276 10x3/uL (150-450); RBC Distribution Width 16.3 % (11.5-14.5); Red Blood Cell (RBC) Count 3.84 10x6/uL (3.90-5.03); White Blood Cell (WBC) Count 5.1 10x3/uL (3.5-10.5)
[2023-01-07] MEDS: HumaLOG 300 UNITS/3 ML VIAL SC PRN (06:07)
[2023-01-07] MEDS ORDERED: HumaLOG 300 UNITS/3 ML VIAL SC PRN (08:53)
[2023-01-07] MEDS ORDERED: Lantus 1000 UNITS/10 ML VIAL SC SCH (09:00)
[2023-01-07 12:38] VITALS: TEMP 98.5
[2023-01-07 13:31] VITALS: BP 135/78
[2023-01-07] MEDS: Diazepam 5 MG TAB PO PRN (14:09)
== END 2023-01-07 16:15 | disposition home or self-care (01) | DRG 391 ==
LOC: CSHPP 16:34 → OBSVTOIN 01-05 10:33 → CSHTELE 01-06 09:45
PROVIDERS: ADMIT Student in an Organized Health Care Education/Training Program; ATTEND Internal Medicine
DX: R11.2 Nausea with vomiting, unspecified (principal); E11.10 Type 2 diabetes mellitus with ketoacidosis without coma; E87.1 Hypo-osmolality and hyponatremia; E11.40 Type 2 diabetes mellitus with diabetic neuropathy, unspecified; I10 Essential (primary) hypertension; I25.10 Atherosclerotic heart disease of native coronary artery without angina pectoris; F12.129 Cannabis abuse with intoxication, unspecified; G89.4 Chronic pain syndrome; E83.42 Hypomagnesemia; E87.6 Hypokalemia; F41.9 Anxiety disorder, unspecified; Z88.1 Allergy status to other antibiotic agents; Z88.8 Allergy status to other drugs, medicaments and biological substances; Z79.4 Long term (current) use of insulin; Z79.899 Other long term (current) drug therapy; Z90.49 Acquired absence of other specified parts of digestive tract; Z98.890 Other specified postprocedural states; Z98.51 Tubal ligation status
CPT/HCPCS: 36415; 36416; 80048; 80306; 82010; 83735; 84100; 84484; 85025; 93005; 93010; 94760; J1815; J2272; J2405; J2550; J3475; J3480; J7050; J7120; Q0162; Q0169

== ENCOUNTER 2023-03-07 19:09 | Emergency (ER) | payer MEDICAID ==
[~2023-03-07 19:09] MED LIST: Iopamidol 300 61% 100 ML VIAL FS ONE
[2023-03-07] MEDS ORDERED: Pantoprazole 40 MG VIAL ONE ×2 (20:00→22:10)
[2023-03-07] MEDS ORDERED: Metoclopramide HCl 10 MG/2 ML VIAL ONE (20:30)
[2023-03-07] MEDS ORDERED: Fentanyl 100 MCG/2 ML VIAL ONE (20:30)
[2023-03-07 21:20] LABS: #Basophils 0.1 10x3/uL (0.0-0.2); #Monocytes 0.4 10x3/uL (0.0-1.1); #Neutrophils 4.8 10x3/uL (1.5-8.4); %Basophils 0.8 % (0.0-2.0); %Eosinophils 0.2 % (0.0-6.0); %Lymphocytes 16.3 % (18.0-47.0); %Monocytes 5.6 % (0.0-10.0); %Neutrophils 76.9 % (40.0-75.0); Hemoglobin 8.3 g/dL (12.0-15.5); Mean Corpuscular HGB CONC 30.7 g/dL (32.0-36.0); Mean Corpuscular Hemoglobin 22.9 pg (27.0-33.0); Mean Corpuscular Volume 74.6 fl (81.6-98.3); Mean Platelet Volume 9.8 fl (7.4-10.4); Platelet Count 280 10x3/uL (150-450); RBC Distribution Width 15.5 % (11.5-14.5); Red Blood Cell (RBC) Count 3.62 10x6/uL (3.90-5.03); White Blood Cell (WBC) Count 6.2 10x3/uL (3.5-10.5)
[2023-03-07 21:35] LABS: ALT (SGPT) 15 U/L (8-55); AST (SGOT) 18 U/L (5-34); Alkaline Phosphatase 110 U/L (40-110); Anion Gap 15 mmol/L (10-20); BUN (Urea Nitrogen) 9 mg/dL (9.8-20.1); Bilirubin, Total 0.5 mg/dL (0.2-1.2); Calc. Creatinine Clearance 0 mL/min (70-130); Calcium 8.7 mg/dL (7.8-10.44); Carbon Dioxide 24 mmol/L (22-29); Chloride 104 mmol/L (98-107); Estimated GFR 95; Glucose 156 mg/dL (70-105); Lipase 5 U/L (8-78); Magnesium 1.6 mg/dL (1.6-2.6); Potassium 3.4 mmol/L (3.5-5.1); Sodium 140 mmol/L (136-145)
[2023-03-07 22:13] LABS: Actual Bicarbonate (HCO3v) 25 mEq/L (22-28); Calcium, Ionized (venous) 1.09 mmol/L (1.16-1.32); Chloride (VBG) 101 mmol/L (98-106); Hemoglobin (Hb) 9.8 g/dL (11.7-16.0); Potassium (VBG) 3.23 mmol/L (3.70-5.30); Puncture Site Other Site; Sodium 142.4 mmol/L (133-146); pH (venous) 7.46 (7.32-7.43)
[2023-03-08] MEDS ORDERED: Promethazine 25 MG TAB PO SCH (02:00)
[2023-03-08] MEDS ORDERED: Pantoprazole 40 MG VIAL ONE (02:03)
[2023-03-08] MEDS ORDERED: Promethazine 25 MG TAB ONE (02:10)
[2023-03-08 02:36] LABS: INR-International Normal Ratio 1.1; PTT 25.2 sec (22.0-33.0); Prothrombin Time 12.1 sec (9.5-12.1)
[2023-03-08 20:03] LABS: Campy jejuni + coli by PCR Negative (Negative); STEC Shiga Toxin 1+2 Negative (Negative); Salmonella spp. by PCR Negative (Negative); Shigella spp + EIEC by PCR Negative (Negative)
== END 2023-03-08 02:35 | disposition short-term general hospital (02) ==
LOC: CSHERS 19:09
DX: K92.2 Gastrointestinal hemorrhage, unspecified (principal); D64.9 Anemia, unspecified; E11.9 Type 2 diabetes mellitus without complications; Z79.4 Long term (current) use of insulin
CPT/HCPCS: 36415; 74177; 80053; 82010; 82274; 82805; 83605; 83690; 83735; 84484; 85025; 85610; 85730; 86850; 86900; 86901; 87324; 87449; 87505; 93005; 96360; 96361; 96374; 96375; C9113; J2765; J3010; Q0169; Q9967